=== PATIENT | male | born 1990 | race Caucasian/White ===

== ENCOUNTER 2019-01-13 19:28 | Emergency (ER) | payer SELFPAY ==
--- NOTE | 2019-01-13 20:54 | EDM.PDOCBH ---
ED HPI GENERAL MEDICAL PROBLEM - General Stated Complaint: REPORT OF HIM TAKING PILLS Time Seen by Provider: 01/13/19 19:50 Source of Information: Reports: Patient History Limitations: Reports: No Limitations - History of Present Illness INITIAL COMMENTS - FREE TEXT/NARRATIVE: 28-year-old male who presents here via ambulance from his home after they were called apparently because he called the [place] crisis line and told them that he had taken an entire bottle of his blood pressure medication to try to kill himself. He also admitted that he had been drinking some alcohol tonight. He arrives to the hospital via ambulance and immediately he is stating that he not take any pills and that he does not want to kill himself. He is rather adamant about leaving at this point. I went into evaluate the patient and it was obvious that he had alcohol intoxication with a strong odor of alcohol on his breath and lateral gaze nystagmus. When I ask him why he was here, he reports he is here because of his blood pressure. When I tell him that the reports are that he took an overdose of his blood pressure pills, he simply states "I sign myself out and I'm leaving". Following this he left the emergency department. With the reports that the patient stated that he took an entire bottle of his blood pressure medications and that he was trying to kill himself, [place] [employer] was called to the emergency department. They responded and were given a description of the patient and asked to bring the patient back to the emergency department for evaluation based on the above. 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 Social & Family History - Living Situation & Occupation Social History Comment: Patient was completely uncooperative with any history and left AWOL prior to giving any of this information. ED ROS GENERAL - Review of Systems Review Of Systems: Unable To Obtain (Patient uncooperative) Constitutional: Reports: ROS unobtainable ED EXAM, BEHAVIORAL HEALTH - Physical Exam Exam: See Below Exam Limited By: Intoxication (Patient was not cooperative with exam) General Appearance: Alert, Other (Strong odor of alcohol noted on his breath. Patient was agitated.) Eye Exam: Bilateral Eye: Other (Patient with lateral gaze nystagmus at less than 45) Ears: Normal External Exam, Hearing Grossly Normal Throat/Mouth: Normal Voice, No Airway Compromise, Other (Strong odor of alcohol) Head: Atraumatic, Normocephalic Respiratory/Chest: No Respiratory Distress Extremities: Normal Inspection Neurological: Alert, Normal Gait, No Motor/Sensory Deficits, Other (Intoxicated) Psychiatric: Alert, Uncooperative Skin Exam: Normal color COURSE, BEHAVIORAL HEALTH COMP - Course Re-Assessment/Re-Exam: 8:30 PM: The police came back and reported that they were unable to find the patient. Departure - Departure Time of Disposition: 20:30 Disposition: Eloped 07 Condition: Undetermined Clinical Impression: History of suicidal ideation, History of drug overdose Alcohol intoxication Qualifiers: Complication of substance-induced condition: uncomplicated Qualified Code(s): F10.920 - Alcohol use, unspecified with intoxication, uncomplicated - Discharge Information
== END 2019-01-13 19:55 | disposition left against medical advice (07) ==
LOC: FB.ED 19:28
DX: F10.120 Alcohol abuse with intoxication, uncomplicated (principal)
CPT/HCPCS: 99284

== ENCOUNTER 2020-07-08 02:05 | Emergency (ER) | payer SELFPAY ==
[2020-07-08] MEDS ORDERED: Sodium Chloride 0.9% 1,000 ML IV SCH (02:45)
--- NOTE | 2020-07-08 03:03 | EDM.PDOCBH ---
ED HPI GENERAL MEDICAL PROBLEM - General Chief Complaint: Drug or Alcohol Abuse Stated Complaint: wants drug screen Time Seen by Provider: 07/08/20 02:10 Source of Information: Reports: Patient History Limitations: Reports: No Limitations - History of Present Illness INITIAL COMMENTS - FREE TEXT/NARRATIVE: states he was drinking and decided to take adderal at the same time ( not prescribed to him) then told a lady friend that he had taken multiple drugs and the police was called and he wsa brought here states he took to make him "high" requesting for drug screen then after interview , requested for IVF Onset: Today Onset Date: 07/08/20 Duration: Waxing/Waning Improves with: Reports: None Worsens with: Reports: None Associated Symptoms: Reports: No Other Symptoms Past Medical History - History Comment History Comment: Patient was completely uncooperative with this and left AWOL prior to giving any of this information. ED ROS GENERAL - Review of Systems Review Of Systems: Comprehensive ROS is negative, except as noted in HPI. ED EXAM, BEHAVIORAL HEALTH - Physical Exam Exam: See Below Exam Limited By: No Limitations General Appearance: Alert, WD/WN, No Apparent Distress Ears: Normal External Exam Nose: Normal Inspection Throat/Mouth: Normal Inspection Head: Atraumatic, Normocephalic Neck: Supple, Non-Tender Respiratory/Chest: No Respiratory Distress, Lungs Clear Cardiovascular: Regular Rate, Rhythm COURSE, BEHAVIORAL HEALTH COMP - Course Orders, Labs, Meds: Active Orders 24 hr Category Date Time Status ACETAMINOPHEN [CHEM] Stat Lab 07/08/20 02:38 Ordered DRUG SCREEN, URINE ALERE [URCHEM] Stat Lab 07/08/20 02:39 Ordered ETOH [ETHANOL BLOOD MEDICAL] [CHEM] Stat Lab 07/08/20 02:38 Ordered SALICYLATE [CHEM] Stat Lab 07/08/20 02:38 Ordered Sodium Chloride 0.9% [Normal Saline] 1,000 ml Med 07/08/20 02:45 Ordered IV ASDIRECTED Re-Assessment/Re-Exam: pt had IVF and labs done , requested and [facility] Departure - Departure Time of Disposition: 04:15 Disposition: Home, Self-Care 01 Condition: Fair Clinical Impression: Drug abuse Alcohol intoxication Qualifiers: Complication of substance-induced condition: uncomplicated Qualified Code(s): F10.920 - Alcohol use, unspecified with intoxication, uncomplicated - Discharge Information *PRESCRIPTION DRUG MONITORING PROGRAM REVIEWED*: Not Applicable *COPY OF PRESCRIPTION DRUG MONITORING REPORT IN PATIENT SEB: Not Applicable Forms: ED Department Discharge Additional Instructions: 1) make appointment to see psychologist 2) Avoid use of alcohol 2) Call with any concerns - My Orders Last 24 Hours: My Active Orders 07/08/20 02:38 ACETAMINOPHEN [CHEM] Stat ETOH [ETHANOL BLOOD MEDICAL] [CHEM] Stat SALICYLATE [CHEM] Stat 07/08/20 02:39 DRUG SCREEN, URINE ALERE [URCHEM] Stat 07/08/20 02:45 Sodium Chloride 0.9% [Normal Saline] 1,000 ml IV ASDIRECTED - Assessment/Plan Last 24 Hours: My Active Orders 07/08/20 02:38 ACETAMINOPHEN [CHEM] Stat ETOH [ETHANOL BLOOD MEDICAL] [CHEM] Stat SALICYLATE [CHEM] Stat 07/08/20 02:39 DRUG SCREEN, URINE ALERE [URCHEM] Stat 07/08/20 02:45 Sodium Chloride 0.9% [Normal Saline] 1,000 ml IV ASDIRECTED
[2020-07-08 03:24] LABS: ACETAMINOPHEN < 2 ug/mL (<2)
[2020-07-08] MEDS ORDERED: Ketorolac 30 MG/ML SDV IVPUSH ONE (04:16)
== END 2020-07-08 04:45 | disposition home or self-care (01) ==
LOC: FB.ED 02:05
DX: F10.120 Alcohol abuse with intoxication, uncomplicated (principal); F15.10 Other stimulant abuse, uncomplicated
CPT/HCPCS: 36415; 80305; 80307; 96374; 99282; 99283; J1885; J7030

== ENCOUNTER 2020-07-13 21:37 | Emergency (ER) | payer SELFPAY ==
--- NOTE | 2020-07-13 23:32 | EDM.PDOCBH ---
ED HPI GENERAL MEDICAL PROBLEM - General Chief Complaint: Behavioral/Psych Stated Complaint: Drug and Alcohol Use Time Seen by Provider: 07/13/20 21:46 Source of Information: Reports: Patient, Old Records History Limitations: Reports: No Limitations - History of Present Illness INITIAL COMMENTS - FREE TEXT/NARRATIVE: Arturo comes to [facility] ED to be checked out following consumption of alcohol and heroin earlier this evening. He is an [place] [employer] Vet of the [employer] 10 years. 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 In addition, his personal life has unravel led with a separation of his spouse, no dependent children. He seemed to calm down after nearly 1/2 hour of discussion. He is alert, orientated and cooperative. R shoulder Pain Score (Numeric/FACES): 6 - Related Data Allergies Allergy/AdvReac Type Severity Reaction Status Date / Time No Known Allergies Allergy Verified 07/13/20 21:42 Home Meds: Home Meds .Amlodipine 1 tab PO DAILY 07/08/20 [History] .Aripiprazole 1 dose INJECT Q30D 07/08/20 [History] .Lisinopril 1 tab PO DAILY 07/08/20 [History] .Multivitamin 1 tab PO DAILY 07/08/20 [History] .Prozac 40 mg PO DAILY 07/08/20 [History] .Vitamin D 2 tab PO DAILY 07/08/20 [History] .Vivitrol 1 dose INJECT Q30D 07/08/20 [History] Past Medical History Cardiovascular History: Reports: Hypertension Musculoskeletal History: Reports: Other (See Below) Other Musculoskeletal History: Chronic right shoulder pain, s/p duty. Psychiatric History: Reports: Other (See Below) Other Psychiatric History: Alcohol and adrug misuse. Behavior situations. - Past Surgical History HEENT Surgical History: Reports: LASIK - History Comment History Comment: Patient was completely uncooperative with this and left AWOL prior to giving any of this information. ED ROS GENERAL - Review of Systems Review Of Systems: Comprehensive ROS is negative, except as noted in HPI. ED EXAM, BEHAVIORAL HEALTH - Physical Exam Exam: See Below Exam Limited By: No Limitations General Appearance: Alert, WD/WN, No Apparent Distress, Anxious, Obese Eye Exam: Bilateral Eye: EOMI, Normal Inspection, PERRL Ears: Normal External Exam Nose: Normal Inspection Throat/Mouth: Normal Inspection, Normal Oropharynx Head: Normocephalic Neck: Normal Inspection, Supple Respiratory/Chest: Lungs Clear Cardiovascular: Regular Rate, Rhythm, No Murmur GI/Abdominal: Soft, Non-Tender, No Organomegaly, No Mass (Male) Exam: Deferred Rectal (Males) Exam: Deferred Back Exam: Normal Inspection Extremities: Normal Inspection Neurological: Alert, CN II-XII Intact, Normal Cognition, No Motor/Sensory Deficits, Oriented x 3 Psychiatric: Alert, Oriented, Restless, Agitated Skin Exam: Warm, Dry, Intact, Normal color, No rash COURSE, BEHAVIORAL HEALTH COMP - Course Vital Signs: Last Vital Signs Temp 36.6 C 07/13/20 21:45 Pulse 123 H 07/13/20 22:22 Resp 20 07/13/20 22:22 BP 155/101 H 07/13/20 22:22 Pulse Ox 95 07/13/20 22:22 Departure - Departure Time of Disposition: 22:45 Disposition: Home, Self-Care 01 Condition: Fair, Poor Clinical Impression: Alcohol abuse, Drug abuse, History of drug overdose, Post traumatic stress disorder (PTSD) - Discharge Information *PRESCRIPTION DRUG MONITORING PROGRAM REVIEWED*: Not Applicable *COPY OF PRESCRIPTION DRUG MONITORING REPORT IN PATIENT SEB: Not Applicable Instructions: Substance Use Disorder Referrals: PCP,None [Primary Care Provider] - Forms: ED Department Discharge Additional Instructions: Activity as tolerated. Stop using drugs. Follow up with your regular MD as needed. Sepsis Event Note (ED) - Evaluation Sepsis Screening Result: No Definite Risk - Focused Exam Vital Signs: Vital Signs Temp Pulse Resp BP Pulse Ox 07/13/20 22:22 123 H 20 155/101 H 95 07/13/20 21:45 36.6 C 125 H 18 175/117 H 100 - Problem List & Annotations (1) Drug abuse SNOMED Code(s): 86728150 Code(s): F19.10 - OTHER PSYCHOACTIVE SUBSTANCE ABUSE, UNCOMPLICATED Status: Acute Current Visit: Yes Annotation/Comment:: [facility]. (2) Alcohol abuse SNOMED Code(s): 22771188 Code(s): F10.10 - ALCOHOL ABUSE, UNCOMPLICATED Status: Acute Current Visit: Yes Annotation/Comment:: Encouraged to resume [facility]. (3) Post traumatic stress disorder (PTSD) SNOMED Code(s): 97396530 Code(s): F43.10 - POST-TRAUMATIC STRESS DISORDER, UNSPECIFIED Status: Acute Current Visit: Yes Annotation/Comment:: [facility]ouraged to [facility]. - Problem List Review Problem List Initiated/Reviewed/Updated: Yes - Assessment/Plan Plan: [facility].
== END 2020-07-13 22:31 | disposition home or self-care (01) ==
LOC: FB.ED 21:37
DX: F43.10 Post-traumatic stress disorder, unspecified (principal); F10.10 Alcohol abuse, uncomplicated; F19.10 Other psychoactive substance abuse, uncomplicated; M25.511 Pain in right shoulder; I10 Essential (primary) hypertension; Z79.899 Other long term (current) drug therapy
CPT/HCPCS: 99282; 99283

== ENCOUNTER 2020-09-08 23:59 | Emergency (ER) | payer SELFPAY ==
[2020-09-09] MEDS ORDERED: Activated Charcoal/Water Susp 50 GM/240 ML Tube PO ONE ×2 (00:06→00:29)
[2020-09-09] MEDS ORDERED: LORazepam 2 MG/ML SDV IVPUSH ONE (00:10)
--- NOTE | 2020-09-09 00:14 | EDM.PDOC ---
ED HPI GENERAL MEDICAL PROBLEM - General Chief Complaint: General Stated Complaint: pills Time Seen by Provider: 09/09/20 00:00 Source of Information: Reports: Patient, EMS, Old Records History Limitations: Reports: No Limitations - History of Present Illness INITIAL COMMENTS - FREE TEXT/NARRATIVE: 30 yo male who was apparently intoxicated took #10 lisinopril and #10 amlodipine tablets of unknown strength. He wanted to harm himself, but immediately changed his mind and called EMS. Time from ingestion to arrival estimated at about 45 minutes. BP per EMS was 130 systolic, but he was tachycardic. 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 (see below) (none) - Related Data Allergies Allergy/AdvReac Type Severity Reaction Status Date / Time No Known Allergies Allergy Verified 07/13/20 21:42 Home Meds: Home Meds .Amlodipine 1 tab PO DAILY 07/08/20 [History] .Aripiprazole 1 dose INJECT Q30D 07/08/20 [History] .Lisinopril 1 tab PO DAILY 07/08/20 [History] .Multivitamin 1 tab PO DAILY 07/08/20 [History] .Prozac 40 mg PO DAILY 07/08/20 [History] .Vitamin D 2 tab PO DAILY 07/08/20 [History] .Vivitrol 1 dose INJECT Q30D 07/08/20 [History] Past Medical History Cardiovascular History: Reports: Hypertension Musculoskeletal History: Reports: Other (See Below) Other Musculoskeletal History: Chronic right shoulder pain, s/p duty. Psychiatric History: Reports: Other (See Below) Other Psychiatric History: Alcohol and adrug misuse. Behavior situations. Endocrine/Metabolic History: Reports: Obesity/BMI 30+ - Past Surgical History HEENT Surgical History: Reports: LASIK - History Comment History Comment: Patient was completely uncooperative with this and left AWOL prior to giving any of this information. Social & Family History - Family History Family Medical History: Unobtainable ED ROS GENERAL - Review of Systems Review Of Systems: See Below Constitutional: Reports: No Symptoms HEENT: Reports: No Symptoms Respiratory: Reports: No Symptoms Cardiovascular: Reports: No Symptoms Endocrine: Reports: No Symptoms GI/Abdominal: Reports: No Symptoms : Reports: No Symptoms Musculoskeletal: Reports: No Symptoms Skin: Reports: No Symptoms Neurological: Reports: No Symptoms Psychiatric: Reports: Anxiety (acute on chronic) ED EXAM, GENERAL - Physical Exam Exam: See Below Exam Limited By: No Limitations General Appearance: Alert, WD/WN, No Apparent Distress, Anxious Eye Exam: Bilateral Eye: Conjunctival Injection, Normal Inspection Ears: Normal External Exam, Normal Canal, Hearing Grossly Normal Ear Exam: Bilateral Ear: Auricle Normal, Canal Normal Nose: Normal Inspection, No Blood Throat/Mouth: Normal Inspection, Normal Lips, Normal Oropharynx, Normal Voice, No Airway Compromise Head: Atraumatic, Normocephalic Neck: Normal Inspection Respiratory/Chest: No Respiratory Distress, Lungs Clear, Normal Breath Sounds, No Accessory Muscle Use Cardiovascular: Regular Rate, Rhythm, No Edema, Tachycardia GI/Abdominal: Normal Bowel Sounds, Soft, Non-Tender, No Distention Back Exam: Normal Inspection, CVA Tenderness (R), CVA Tenderness (L) Extremities: Normal Inspection, Normal Range of Motion, Non-Tender, No Pedal Edema Neurological: Alert, Oriented, CN II-XII Intact, Normal Cognition, No Motor/Sensory Deficits Psychiatric: Anxious Skin Exam: Warm, Dry, Intact, Normal Color, No Rash Course - Vital Signs Last Recorded V/S: Last Vital Signs Temp 37.1 C 09/08/20 23:59 Pulse 108 H 09/09/20 05:35 Resp 21 H 09/08/20 23:59 BP 113/64 09/09/20 05:35 Pulse Ox 94 L 09/08/20 23:59 - Orders/Labs/Meds Orders: Active Orders 24 hr Category Date Time Status Cardiac Monitoring [RC] .As Directed Care 09/09/20 00:46 Active Magnesium Sulfate/Water [Magnesium Sulfate in Water Med 09/09/20 01:00 Active Premix] 2 gm in 50 ml IV ONETIME NS + KCl 20mEq/L [Normal Saline with 20 mEq KCl] 1,000 Med 09/09/20 00:45 Active ml IV ASDIRECTED NS + KCl 20mEq/L [Normal Saline with 20 mEq KCl] 1,000 Med 09/09/20 00:45 Active ml IV ASDIRECTED NS + KCl 20mEq/L [Normal Saline with 20 mEq KCl] 1,000 Med 09/09/20 02:00 Active ml IV ASDIRECTED Medication Orders Potassium Chloride/Sodium Chloride (Normal Saline With 20 Meq Kcl) 1,000 mls @ 500 mls/hr IV ASDIRECTED ROSAURA Last Admin: 09/09/20 00:50 Dose: 500 mls/hr Documented by: NANCY Potassium Chloride/Sodium Chloride (Normal Saline With 20 Meq Kcl) 1,000 mls @ 500 mls/hr IV ASDIRECTED ROSAURA Last Admin: 09/09/20 00:55 Dose: 500 mls/hr Documented by: NANCY Magnesium Sulfate (Magnesium Sulfate In Water Premix) 2 gm in 50 mls @ 25 mls/hr IV ONETIME ROSAURA Last Admin: 09/09/20 01:14 Dose: 25 mls/hr Documented by: NANCY Potassium Chloride/Sodium Chloride (Normal Saline With 20 Meq Kcl) 1,000 mls @ 500 mls/hr IV ASDIRECTED ROSAURA Last Admin: 09/09/20 02:25 Dose: 500 mls/hr Documented by: NANCY Labs: Laboratory Tests 09/09/20 09/09/20 09/09/20 Range/Units 00:18 00:18 00:18 WBC 6.7 (3.2-10.1) x10-3/uL RBC 5.42 (3.90-5.90) x10(6)uL Hgb 17.5 (12.9-17.7) g/dL Hct 52.1 H (38.3-50.1) % MCV 96.2 (80.8-98.7) fL MCH 32.2 (27.0-33.3) pg MCHC 33.5 (28.7-35.3) g/dL RDW 14.2 (12.4-15.0) % Plt Count 206 (117-477) x10(3)uL Sodium 140 (135-145) mmol/L Potassium 2.6 L* (3.5-5.3) mmol/L Chloride 98 L (100-110) mmol/L Carbon Dioxide 25 (21-32) mmol/L BUN 6 L (7-18) mg/dL Creatinine 1.5 H (0.70-1.30) mg/dL Est Cr Clr Drug Dosing TNP Estimated GFR (MDRD) 55 L (>60) BUN/Creatinine Ratio 4.0 L (9-20) Glucose 135 H (80-116) mg/dL Calcium 8.7 (8.6-10.2) mg/dL Magnesium (1.8-2.5) mg/dL Salicylates (<2.8) mg/dL Urine Opiates Screen (NEGATIVE) Ur Oxycodone Screen (NEGATIVE) Ur Propoxyphene Screen (NEGATIVE) Acetaminophen (<2) ug/mL Ur Barbituates Screen (NEGATIVE) Ur Tricyclics Screen (NEGATIVE) Ur Phencyclidine Scrn (NEGATIVE) Ur Amphetamine Screen (NEGATIVE) Urine MDMA Screen (NEGATIVE) U Benzodiazepines Scrn (NEGATIVE) U Cocaine Metab Screen (NEGATIVE) U Marijuana (THC) Screen (NEGATIVE) Ethyl Alcohol 0.14 H (<0.03) % 09/09/20 09/09/20 09/09/20 Range/Units 00:18 00:18 01:29 WBC (3.2-10.1) x10-3/uL RBC (3.90-5.90) x10(6)uL Hgb (12.9-17.7) g/dL Hct (38.3-50.1) % MCV (80.8-98.7) fL MCH (27.0-33.3) pg MCHC (28.7-35.3) g/dL RDW (12.4-15.0) % Plt Count (117-477) x10(3)uL Sodium (135-145) mmol/L Potassium (3.5-5.3) mmol/L Chloride (100-110) mmol/L Carbon Dioxide (21-32) mmol/L BUN (7-18) mg/dL Creatinine (0.70-1.30) mg/dL Est Cr Clr Drug Dosing Estimated GFR (MDRD) (>60) BUN/Creatinine Ratio (9-20) Glucose (80-116) mg/dL Calcium (8.6-10.2) mg/dL Magnesium 1.6 L (1.8-2.5) mg/dL Salicylates < 2.8 L (<2.8) mg/dL Urine Opiates Screen Negative (NEGATIVE) Ur Oxycodone Screen Negative (NEGATIVE) Ur Propoxyphene Screen Negative (NEGATIVE) Acetaminophen < 2 L (<2) ug/mL Ur Barbituates Screen Negative (NEGATIVE) Ur Tricyclics Screen Negative (NEGATIVE) Ur Phencyclidine Scrn Negative (NEGATIVE) Ur Amphetamine Screen Positive H (NEGATIVE) Urine MDMA Screen Negative (NEGATIVE) U Benzodiazepines Scrn Negative (NEGATIVE) U Cocaine Metab Screen Negative (NEGATIVE) U Marijuana (THC) Screen Negative (NEGATIVE) Ethyl Alcohol (<0.03) % Meds: Medications Generic Name Dose Route Start Last Admin Trade Name Freq PRN Reason Stop Dose Admin Potassium Chloride/Sodium Chloride 1,000 mls @ 500 mls/hr 09/09/20 00:45 09/09/20 00:50 Normal Saline With 20 Meq Kcl IV 500 mls/hr ASDIRECTED ROSAURA Administration Potassium Chloride/Sodium Chloride 1,000 mls @ 500 mls/hr 09/09/20 00:45 09/09/20 00:55 Normal Saline With 20 Meq Kcl IV 500 mls/hr ASDIRECTED ROSAURA Administration Magnesium Sulfate 2 gm in 50 mls @ 25 mls/hr 09/09/20 01:00 09/09/20 01:14 Magnesium Sulfate In Water Premix IV 25 mls/hr ONETIME ROSAURA Administration Potassium Chloride/Sodium Chloride 1,000 mls @ 500 mls/hr 09/09/20 02:00 09/09/20 02:25 Normal Saline With 20 Meq Kcl IV 500 mls/hr ASDIRECTED ROSAURA Administration Discontinued Medications Generic Name Dose Route Start Last Admin Trade Name Freq PRN Reason Stop Dose Admin Charcoal 50 gm 09/09/20 00:06 09/09/20 00:05 Actidose-Aqua PO 09/09/20 00:07 50 gm ONETIME ONE Administration Charcoal 50 gm 09/09/20 00:29 09/09/20 00:35 Actidose-Aqua PO 09/09/20 00:30 50 gm ONETIME ONE Administration Sodium Chloride 1,000 mls @ 500 mls/hr 09/09/20 00:15 09/09/20 00:25 Normal Saline IV 500 mls/hr ASDIRECTED ROSAURA Administration Potassium Chloride/Sodium Chloride Confirm 09/09/20 00:47 09/09/20 01:33 Normal Saline With 20 Meq Kcl Administered 09/09/20 00:48 Not Given Dose 1,000 mls @ as directed .ROUTE .STK-MED ONE Lorazepam 1 mg 09/09/20 00:10 09/09/20 00:55 Ativan IVPUSH 09/09/20 00:11 1 mg ONETIME ONE Administration - Re-Assessments/Exams Free Text/Narrative Re-Assessment/Exam: 09/09/20 06:59 Slept well. BP maintaining in the 120-130 range. Has not expressed any desire for further self-harm. Seems to indicate it was an impulsive decision to take the pills that he immediately regretted. Has a pHx of impulsivity as well. Departure - Departure Time of Disposition: 07:20 Disposition: Home, Self-Care 01 Clinical Impression: Hypokalemia, Hypomagnesemia, Anxiety Medication overdose Qualifiers: Encounter type: initial encounter Injury intent: intentional self-harm Qualified Code(s): T50.902A - Poisoning by unspecified drugs, medicaments and biological substances, intentional self-harm, initial encounter Hypotension Qualifiers: Hypotension type: hypotension due to drug Qualified Code(s): I95.2 - Hypotension due to drugs Alcohol intoxication Qualifiers: Complication of substance-induced condition: uncomplicated Qualified Code(s): F10.920 - Alcohol use, unspecified with intoxication, uncomplicated - Discharge Information *PRESCRIPTION DRUG MONITORING PROGRAM REVIEWED*: Not Applicable *COPY OF PRESCRIPTION DRUG MONITORING REPORT IN PATIENT SEB: Not Applicable Instructions: Intentional Drug Overdose Referrals: PCP,None [Primary Care Provider] - Forms: ED Department Discharge Additional Instructions: Abstaining from alcohol will improve your decision making and make it less likely that what happened last night will reoccur. I recommend that you see your primary care provider later this week for a BP recheck and a recheck of your electrolytes. Return as needed in the interim. Sepsis Event Note (ED) - Focused Exam Vital Signs: Vital Signs Temp Pulse Resp BP Pulse Ox 09/09/20 05:35 108 H 113/64 09/08/20 23:59 37.1 C 161 H 21 H 103/53 L 94 L - My Orders Last 24 Hours: My Active Orders 09/09/20 00:45 NS + KCl 20mEq/L [Normal Saline with 20 mEq KCl] 1,000 ml IV ASDIRECTED NS + KCl 20mEq/L [Normal Saline with 20 mEq KCl] 1,000 ml IV ASDIRECTED 09/09/20 00:46 Cardiac Monitoring [RC] .As Directed 09/09/20 01:00 Magnesium Sulfate/Water [Magnesium Sulfate in Water Premix] 2 gm in 50 ml IV ONETIME 09/09/20 02:00 NS + KCl 20mEq/L [Normal Saline with 20 mEq KCl] 1,000 ml IV ASDIRECTED - Assessment/Plan Last 24 Hours: My Active Orders 09/09/20 00:45 NS + KCl 20mEq/L [Normal Saline with 20 mEq KCl] 1,000 ml IV ASDIRECTED NS + KCl 20mEq/L [Normal Saline with 20 mEq KCl] 1,000 ml IV ASDIRECTED 09/09/20 00:46 Cardiac Monitoring [RC] .As Directed 09/09/20 01:00 Magnesium Sulfate/Water [Magnesium Sulfate in Water Premix] 2 gm in 50 ml IV ONETIME 09/09/20 02:00 NS + KCl 20mEq/L [Normal Saline with 20 mEq KCl] 1,000 ml IV ASDIRECTED
[2020-09-09] MEDS ORDERED: Sodium Chloride 0.9% 1,000 ML IV SCH (00:15)
[2020-09-09 00:42] LABS: ACETAMINOPHEN < 2 ug/mL (<2)
[2020-09-09] MEDS ORDERED: NS + KCl 20mEq/L 1,000 ML IV SCH ×3 (00:45→02:00)
[2020-09-09] MEDS ORDERED: NS + KCl 20mEq/L 1,000 ML ONE (00:47)
[2020-09-09] MEDS ORDERED: Magnesium Sulfate/Water 2 GM/50 ML BAG IV SCH (01:00)
== END 2020-09-09 07:25 | disposition home or self-care (01) ==
LOC: FB.ED 23:59
DX: T46.4X2A Poisoning by angiotensin-converting-enzyme inhibitors, intentional self-harm, initial encounter (principal); T46.1X2A Poisoning by calcium-channel blockers, intentional self-harm, initial encounter; I95.2 Hypotension due to drugs; F10.120 Alcohol abuse with intoxication, uncomplicated; E87.6 Hypokalemia; E83.42 Hypomagnesemia; F41.9 Anxiety disorder, unspecified; I10 Essential (primary) hypertension; E66.9 Obesity, unspecified; Z68.30 Body mass index [BMI] 30.0-30.9, adult; Y90.0 Blood alcohol level of less than 20 mg/100 ml; Z79.899 Other long term (current) drug therapy
CPT/HCPCS: 36415; 80048; 80143; 80179; 80305; 80307; 83735; 85027; 96365; 96366; 96368; 96375; 96376; 99284; 99285; J2060; J3475; J3480; J7030

== ENCOUNTER 2020-11-11 05:25 | Emergency (ER) | payer SELFPAY ==
[2020-11-11] MEDS ORDERED: Sodium Chloride 0.9% 10 ML Syringe FLUSH PRN (05:39)
--- NOTE | 2020-11-11 05:47 | EDM.PDOCBH ---
ED HPI GENERAL MEDICAL PROBLEM - General Stated Complaint: OVERDOSE Time Seen by Provider: 11/11/20 05:42 Source of Information: Reports: Patient, EMS Notes Reviewed History Limitations: Reports: Altered Mental Status - History of Present Illness INITIAL COMMENTS - FREE TEXT/NARRATIVE: Sylvie was brought in by EMS after taking 15 tablets of Seroquel 200 mg tablets. He is confused,has garbled and slurred speech,and admits to also having been taking alcohol. He has a a long standing history of mental health disorders,including,but not limited to DO,PTSD,alcohol abuse,Suicidal abuse and overdose with medications,and was recently admitted to the [facility] psychiatric unit. - Related Data Allergies Allergy/AdvReac Type Severity Reaction Status Date / Time No Known Allergies Allergy Verified 07/13/20 21:42 Home Meds: Home Meds .Amlodipine 1 tab PO DAILY 07/08/20 [History] .Aripiprazole 1 dose INJECT Q30D 07/08/20 [History] .Lisinopril 1 tab PO DAILY 07/08/20 [History] .Multivitamin 1 tab PO DAILY 07/08/20 [History] .Prozac 40 mg PO DAILY 07/08/20 [History] .Vitamin D 2 tab PO DAILY 07/08/20 [History] .Vivitrol 1 dose INJECT Q30D 07/08/20 [History] Past Medical History Cardiovascular History: Reports: Hypertension Musculoskeletal History: Reports: Other (See Below) Other Musculoskeletal History: Chronic right shoulder pain, s/p duty. Psychiatric History: Reports: Other (See Below) Other Psychiatric History: Alcohol and adrug misuse. Behavior situations. Endocrine/Metabolic History: Reports: Obesity/BMI 30+ - Past Surgical History HEENT Surgical History: Reports: LASIK - History Comment History Comment: Patient was completely uncooperative with this and left AWOL prior to giving any of this information. Social & Family History - Family History Family Medical History: Unobtainable ED ROS GENERAL - Review of Systems Review Of Systems: Comprehensive ROS is negative, except as noted in HPI. ED EXAM, BEHAVIORAL HEALTH - Physical Exam Exam: See Below Exam Limited By: Altered Mental Status General Appearance: Alert, WD/WN Ears: Normal External Exam Nose: Normal Inspection Neck: Normal Inspection Respiratory/Chest: No Respiratory Distress Cardiovascular: Tachycardia GI/Abdominal: Soft #1 Interpretation EKG Date: 11/11/20 COURSE, BEHAVIORAL HEALTH COMP - Course Vital Signs: Last Vital Signs Temp 97.6 F 11/12/20 08:00 Pulse 117 H 11/12/20 12:00 Resp 16 11/12/20 12:00 BP 148/91 H 11/12/20 12:00 Pulse Ox 99 11/12/20 12:00 Orders, Labs, Meds: Laboratory Tests 11/11/20 11/11/20 11/11/20 Range/Units 05:50 05:50 05:50 WBC 5.4 (3.2-10.1) x10-3/uL RBC 4.87 (3.90-5.90) x10(6)uL Hgb 15.5 (12.9-17.7) g/dL Hct 45.5 (38.3-50.1) % MCV 93.4 (80.8-98.7) fL MCH 31.8 (27.0-33.3) pg MCHC 34.0 (28.7-35.3) g/dL RDW 12.5 (12.4-15.0) % Plt Count 204 (117-477) x10(3)uL MPV 7.4 (6.7-11.0) fL Neut % (Auto) 52.1 (40.3-71.8) % Lymph % (Auto) 32.8 (15.8-45.3) % [place] % (Auto) 9.6 (5.5-15.2) % Eos % (Auto) 4.8 (0.1-6.8) % Baso % (Auto) 0.7 (0.3-3.8) % Neut # (Auto) 2.8 (1.7-6.9) x10-3/uL Lymph # (Auto) 1.8 (0.5-4.5) x10-3/uL [place] # (Auto) 0.5 (0.0-1.2) x10-3/uL Eos # (Auto) 0.3 (0.0-0.6) x10-3/uL Baso # (Auto) 0.0 (0.0-0.3) x10-3/uL Sodium 138 (135-145) mmol/L Potassium 2.2 L* (3.5-5.3) mmol/L Chloride 100 (100-110) mmol/L Carbon Dioxide 22 (21-32) mmol/L BUN 8 (7-18) mg/dL Creatinine 1.0 (0.70-1.30) mg/dL Est Cr Clr Drug Dosing TNP Estimated GFR (MDRD) > 60 (>60) BUN/Creatinine Ratio 8.0 L (9-20) Glucose 170 H (80-116) mg/dL Calcium 8.2 L (8.6-10.2) mg/dL Magnesium (1.8-2.5) mg/dL Total Bilirubin 0.5 (0.1-1.3) mg/dL AST 24 (5-25) IU/L ALT 79 H (12-36) U/L Alkaline Phosphatase 100 (56-112) IU/L Total Protein 6.9 (6.0-8.0) g/dL Albumin 3.3 L (3.5-5.2) g/dL Globulin 3.6 g/dL Albumin/Globulin Ratio 0.9 TSH, Ultra Sensitive (0.36-3.74) IU/mL Salicylates (<2.8) mg/dL Urine Opiates Screen (NEGATIVE) Ur Oxycodone Screen (NEGATIVE) Ur Propoxyphene Screen (NEGATIVE) Acetaminophen (<2) ug/mL Ur Barbituates Screen (NEGATIVE) Ur Tricyclics Screen (NEGATIVE) Ur Phencyclidine Scrn (NEGATIVE) Ur Amphetamine Screen (NEGATIVE) Urine MDMA Screen (NEGATIVE) U Benzodiazepines Scrn (NEGATIVE) U Cocaine Metab Screen (NEGATIVE) U Marijuana (THC) Screen (NEGATIVE) Ethyl Alcohol 0.14 H (<0.03) % SARS-CoV-2 RNA (VERNA) (NEGATIVE) 11/11/20 11/11/20 11/11/20 Range/Units 05:50 11:18 14:10 WBC (3.2-10.1) x10-3/uL RBC (3.90-5.90) x10(6)uL Hgb (12.9-17.7) g/dL Hct (38.3-50.1) % MCV (80.8-98.7) fL MCH (27.0-33.3) pg MCHC (28.7-35.3) g/dL RDW (12.4-15.0) % Plt Count (117-477) x10(3)uL MPV (6.7-11.0) fL Neut % (Auto) (40.3-71.8) % Lymph % (Auto) (15.8-45.3) % [place] % (Auto) (5.5-15.2) % Eos % (Auto) (0.1-6.8) % Baso % (Auto) (0.3-3.8) % Neut # (Auto) (1.7-6.9) x10-3/uL Lymph # (Auto) (0.5-4.5) x10-3/uL [place] # (Auto) (0.0-1.2) x10-3/uL Eos # (Auto) (0.0-0.6) x10-3/uL Baso # (Auto) (0.0-0.3) x10-3/uL Sodium 140 (135-145) mmol/L Potassium 3.1 L (3.5-5.3) mmol/L Chloride 103 (100-110) mmol/L Carbon Dioxide 26 (21-32) mmol/L BUN 8 (7-18) mg/dL Creatinine 1.0 (0.70-1.30) mg/dL Est Cr Clr Drug Dosing 110.51 Estimated GFR (MDRD) > 60 (>60) BUN/Creatinine Ratio 8.0 L (9-20) Glucose 123 H (80-116) mg/dL Calcium 7.7 L (8.6-10.2) mg/dL Magnesium 2.0 (1.8-2.5) mg/dL Total Bilirubin (0.1-1.3) mg/dL AST (5-25) IU/L ALT (12-36) U/L Alkaline Phosphatase (56-112) IU/L Total Protein (6.0-8.0) g/dL Albumin (3.5-5.2) g/dL Globulin g/dL Albumin/Globulin Ratio TSH, Ultra Sensitive (0.36-3.74) IU/mL Salicylates 0.2 L (<2.8) mg/dL Urine Opiates Screen Negative (NEGATIVE) Ur Oxycodone Screen Positive (NEGATIVE) Ur Propoxyphene Screen Negative (NEGATIVE) Acetaminophen < 2 L (<2) ug/mL Ur Barbituates Screen Negative (NEGATIVE) Ur Tricyclics Screen Positive H (NEGATIVE) Ur Phencyclidine Scrn Negative (NEGATIVE) Ur Amphetamine Screen Positive H (NEGATIVE) Urine MDMA Screen Positive H (NEGATIVE) U Benzodiazepines Scrn Negative (NEGATIVE) U Cocaine Metab Screen Negative (NEGATIVE) U Marijuana (THC) Screen Negative (NEGATIVE) Ethyl Alcohol (<0.03) % SARS-CoV-2 RNA (VERNA) (NEGATIVE) 11/11/20 11/11/20 11/11/20 Range/Units 15:00 15:00 15:00 WBC (3.2-10.1) x10-3/uL RBC (3.90-5.90) x10(6)uL Hgb (12.9-17.7) g/dL Hct (38.3-50.1) % MCV (80.8-98.7) fL MCH (27.0-33.3) pg MCHC (28.7-35.3) g/dL RDW (12.4-15.0) % Plt Count (117-477) x10(3)uL MPV (6.7-11.0) fL Neut % (Auto) (40.3-71.8) % Lymph % (Auto) (15.8-45.3) % [place] % (Auto) (5.5-15.2) % Eos % (Auto) (0.1-6.8) % Baso % (Auto) (0.3-3.8) % Neut # (Auto) (1.7-6.9) x10-3/uL Lymph # (Auto) (0.5-4.5) x10-3/uL [place] # (Auto) (0.0-1.2) x10-3/uL Eos # (Auto) (0.0-0.6) x10-3/uL Baso # (Auto) (0.0-0.3) x10-3/uL Sodium 140 (135-145) mmol/L Potassium 3.6 (3.5-5.3) mmol/L Chloride 101 (100-110) mmol/L Carbon Dioxide 26 (21-32) mmol/L BUN 6 L (7-18) mg/dL Creatinine 1.0 (0.70-1.30) mg/dL Est Cr Clr Drug Dosing 110.51 Estimated GFR (MDRD) > 60 (>60) BUN/Creatinine Ratio 6.0 L (9-20) Glucose 107 (80-116) mg/dL Calcium 8.0 L (8.6-10.2) mg/dL Magnesium (1.8-2.5) mg/dL Total Bilirubin (0.1-1.3) mg/dL AST (5-25) IU/L ALT (12-36) U/L Alkaline Phosphatase (56-112) IU/L Total Protein (6.0-8.0) g/dL Albumin (3.5-5.2) g/dL Globulin g/dL Albumin/Globulin Ratio TSH, Ultra Sensitive 1.31 (0.36-3.74) IU/mL Salicylates (<2.8) mg/dL Urine Opiates Screen (NEGATIVE) Ur Oxycodone Screen (NEGATIVE) Ur Propoxyphene Screen (NEGATIVE) Acetaminophen (<2) ug/mL Ur Barbituates Screen (NEGATIVE) Ur Tricyclics Screen (NEGATIVE) Ur Phencyclidine Scrn (NEGATIVE) Ur Amphetamine Screen (NEGATIVE) Urine MDMA Screen (NEGATIVE) U Benzodiazepines Scrn (NEGATIVE) U Cocaine Metab Screen (NEGATIVE) U Marijuana (THC) Screen (NEGATIVE) Ethyl Alcohol < 0.03 (<0.03) % SARS-CoV-2 RNA (VERNA) (NEGATIVE) 11/11/20 11/11/20 11/11/20 Range/Units 15:00 15:00 19:45 WBC (3.2-10.1) x10-3/uL RBC (3.90-5.90) x10(6)uL Hgb (12.9-17.7) g/dL Hct (38.3-50.1) % MCV (80.8-98.7) fL MCH (27.0-33.3) pg MCHC (28.7-35.3) g/dL RDW (12.4-15.0) % Plt Count (117-477) x10(3)uL MPV (6.7-11.0) fL Neut % (Auto) (40.3-71.8) % Lymph % (Auto) (15.8-45.3) % [place] % (Auto) (5.5-15.2) % Eos % (Auto) (0.1-6.8) % Baso % (Auto) (0.3-3.8) % Neut # (Auto) (1.7-6.9) x10-3/uL Lymph # (Auto) (0.5-4.5) x10-3/uL [place] # (Auto) (0.0-1.2) x10-3/uL Eos # (Auto) (0.0-0.6) x10-3/uL Baso # (Auto) (0.0-0.3) x10-3/uL Sodium (135-145) mmol/L Potassium (3.5-5.3) mmol/L Chloride (100-110) mmol/L Carbon Dioxide (21-32) mmol/L BUN (7-18) mg/dL Creatinine (0.70-1.30) mg/dL Est Cr Clr Drug Dosing Estimated GFR (MDRD) (>60) BUN/Creatinine Ratio (9-20) Glucose (80-116) mg/dL Calcium (8.6-10.2) mg/dL Magnesium (1.8-2.5) mg/dL Total Bilirubin (0.1-1.3) mg/dL AST (5-25) IU/L ALT (12-36) U/L Alkaline Phosphatase (56-112) IU/L Total Protein (6.0-8.0) g/dL Albumin (3.5-5.2) g/dL Globulin g/dL Albumin/Globulin Ratio TSH, Ultra Sensitive (0.36-3.74) IU/mL Salicylates 0.3 L (<2.8) mg/dL Urine Opiates Screen (NEGATIVE) Ur Oxycodone Screen (NEGATIVE) Ur Propoxyphene Screen (NEGATIVE) Acetaminophen < 2 L (<2) ug/mL Ur Barbituates Screen (NEGATIVE) Ur Tricyclics Screen (NEGATIVE) Ur Phencyclidine Scrn (NEGATIVE) Ur Amphetamine Screen (NEGATIVE) Urine MDMA Screen (NEGATIVE) U Benzodiazepines Scrn (NEGATIVE) U Cocaine Metab Screen (NEGATIVE) U Marijuana (THC) Screen (NEGATIVE) Ethyl Alcohol (<0.03) % SARS-CoV-2 RNA (VERNA) Negative (NEGATIVE) Medications Discontinued Medications Generic Name Dose Route Start Last Admin Trade Name Freq PRN Reason Stop Dose Admin Acetaminophen 1,000 mg 11/11/20 19:45 11/11/20 19:54 Acetaminophen 500 Mg Tab PO 11/11/20 19:46 1,000 mg ONETIME ONE Administration Sodium Chloride 1,000 mls @ 150 mls/hr 11/11/20 06:00 11/11/20 08:45 Normal Saline IV 150 mls/hr ASDIRECTED ROSAURA Infusion Potassium Chloride 10 meq/ 100 mls @ 100 mls/hr 11/11/20 06:22 11/11/20 06:29 Premix IV 11/11/20 07:21 100 mls/hr ONETIME ONE Administration Sodium Chloride 1,000 mls @ 125 mls/hr 11/11/20 10:00 11/11/20 10:05 Normal Saline IV 125 mls/hr ASDIRECTED ROSAURA Administration Potassium Chloride 10 meq/ 100 mls @ 100 mls/hr 11/11/20 12:10 11/11/20 12:17 Premix IV 11/11/20 13:09 100 mls/hr ONETIME ONE Administration Lorazepam 1 mg 11/11/20 19:45 11/11/20 19:54 Lorazepam 1 Mg Tab PO 11/11/20 19:46 1 mg ONETIME ONE Administration Lorazepam 1 mg 11/12/20 05:28 11/12/20 05:34 Lorazepam 1 Mg Tab PO 11/12/20 05:29 1 mg ONETIME ONE Administration Sodium Chloride 10 ml 11/11/20 05:39 Sodium Chloride 0.9% 10 Ml Syringe FLUSH ASDIRECTED PRN Keep Vein Open Departure - Departure Time of Disposition: 19:09 Disposition: DC/Tfer to Other 70 Clinical Impression: History of drug overdose, Hypokalemia, Deliberate medication overdose Alcohol intoxication Qualifiers: Complication of substance-induced condition: with delirium Qualified Code(s): F10.921 - Alcohol use, unspecified with intoxication delirium - Discharge Information Instructions: Chemical Dependency, Intentional Drug Overdose, Alcohol Intoxication Referrals: PCP,None [Primary Care Provider] - Forms: ED Department Discharge - Problem List & Annotations (1) Alcohol intoxication SNOMED Code(s): 99702714 Code(s): F10.929 - ALCOHOL USE, UNSPECIFIED WITH INTOXICATION, UNSPECIFIED Status: Acute Qualifiers: Complication of substance-induced condition: with delirium Qualified Code(s): F10.921 - Alcohol use, unspecified with intoxication delirium (2) Medication overdose SNOMED Code(s): 97626142 Code(s): T50.901A - POISONING BY UNSP DRUG/MEDS/BIOL SUBST, ACCIDENTAL, INIT Status: Acute Qualifiers: Encounter type: initial encounter Injury intent: intentional self-harm Qualified Code(s): T50.902A - Poisoning by unspecified drugs, medicaments and biological substances, intentional self-harm, initial encounter - Problem List Review Problem List Initiated/Reviewed/Updated: Yes - Assessment/Plan Plan: Supportive care and monitoring until clears. IVF. Obtain labs.Dr Andino to take over
[2020-11-11] MEDS ORDERED: Sodium Chloride 0.9% 1,000 ML IV SCH ×2 (06:00→10:00)
[2020-11-11 06:15] LABS: ACETAMINOPHEN < 2 ug/mL (<2)
[2020-11-11] MEDS ORDERED: Potassium Chloride 10 MEQ in Premix Bag 1 BAG IV ONE ×2 (06:22→12:10)
--- NOTE | 2020-11-11 14:57 | EDM.PDOCBH ---
ED HPI GENERAL MEDICAL PROBLEM - General Chief Complaint: Drug or Alcohol Abuse Stated Complaint: OVERDOSE Time Seen by Provider: 11/11/20 05:42 Source of Information: Reports: Patient, EMS Notes Reviewed History Limitations: Reports: Altered Mental Status - History of Present Illness INITIAL COMMENTS - FREE TEXT/NARRATIVE: Sylvie was brought in by EMS after taking 15 tablets of Seroquel 200 mg tablets. He is confused,has garbled and slurred speech,and admits to also having been taking alcohol. He has a a long standing history of mental health disorders,including,but not limited to DO,PTSD,alcohol abuse,Suicidal abuse and overdose with medications,and was recently admitted to the [place] [facility]. Onset Date: 11/11/20 Duration: Waxing/Waning Improves with: Reports: None Worsens with: Reports: None Associated Symptoms: Reports: No Other Symptoms - Related Data Allergies Allergy/AdvReac Type Severity Reaction Status Date / Time No Known Allergies Allergy Verified 07/13/20 21:42 Home Meds: Home Meds .Amlodipine 1 tab PO DAILY 07/08/20 [History] .Aripiprazole 1 dose INJECT Q30D 07/08/20 [History] .Lisinopril 1 tab PO DAILY 07/08/20 [History] .Multivitamin 1 tab PO DAILY 07/08/20 [History] .Prozac 40 mg PO DAILY 07/08/20 [History] .Vitamin D 2 tab PO DAILY 07/08/20 [History] .Vivitrol 1 dose INJECT Q30D 07/08/20 [History] Past Medical History Cardiovascular History: Reports: Hypertension Musculoskeletal History: Reports: Other (See Below) Other Musculoskeletal History: Chronic right shoulder pain, s/p duty. Psychiatric History: Reports: Other (See Below) Other Psychiatric History: Alcohol and adrug misuse. Behavior situations. Endocrine/Metabolic History: Reports: Obesity/BMI 30+ - Past Surgical History HEENT Surgical History: Reports: LASIK - History Comment History Comment: Patient was completely uncooperative with this and left AWOL prior to giving any of this information. Social & Family History - Family History Family Medical History: Unobtainable ED ROS GENERAL - Review of Systems Review Of Systems: See Below Constitutional: Reports: Weakness HEENT: Reports: No Symptoms Respiratory: Reports: No Symptoms. Denies: Shortness of Breath Cardiovascular: Reports: No Symptoms. Denies: Chest Pain, Dyspnea on Exertion, Edema, Orthopnea Endocrine: Reports: No Symptoms GI/Abdominal: Reports: No Symptoms Musculoskeletal: Reports: No Symptoms Skin: Reports: No Symptoms Neurological: Reports: Gait Disturbance. Denies: Trouble Speaking Psychiatric: Denies: Agitation, Anxiety, Suicidal Ideation Hematologic/Lymphatic: Reports: No Symptoms Immunologic: Reports: No Symptoms ED EXAM, BEHAVIORAL HEALTH - Physical Exam Exam: See Below Exam Limited By: No Limitations General Appearance: Alert, WD/WN, No Apparent Distress, Lethargic Eye Exam: Bilateral Eye: EOMI Ears: Normal External Exam Nose: Normal Inspection Throat/Mouth: Normal Inspection Head: Atraumatic, Normocephalic Neck: Supple, Non-Tender Respiratory/Chest: Lungs Clear, Normal Breath Sounds Cardiovascular: Normal Peripheral Pulses, Regular Rate, Rhythm GI/Abdominal: Soft, Non-Tender Back Exam: Normal Inspection, Full Range of Motion Extremities: Normal Inspection, Normal Range of Motion Neurological: Alert, Normal Mood/Affect, CN II-XII Intact Psychiatric: Alert, Normal Affect, Normal Cognition Skin Exam: Warm, Dry, Intact #1 Interpretation EKG Date: 11/11/20 Time: 09:12 Rhythm: NSR Rate (Beats/Min): 101 [place]: Normal P-Wave: Present QRS: Normal ST-T: Normal QT: Normal Comparison: NA - No Prior EKG EKG Interpretation Comments: Normal , Sinus tachycardia COURSE, BEHAVIORAL HEALTH COMP - Course Vital Signs: Last Vital Signs Temp 36.6 C 11/12/20 05:10 Pulse 130 H 11/12/20 05:10 Resp 16 11/12/20 05:10 BP 148/98 H 11/12/20 05:10 Pulse Ox 98 11/12/20 05:10 Orders, Labs, Meds: Active Orders 24 hr Category Date Time Status EKG Documentation Completion [RC] ASDIRECTED Care 11/11/20 09:27 Active Oxygen Therapy, ED [RC] ASDIRECTED Care 11/11/20 06:30 Active Sodium Chloride 0.9% [Normal Saline] 1,000 ml Med 11/11/20 10:00 Active IV ASDIRECTED EKG 12 Lead [EK] Routine Ther 11/11/20 09:26 Ordered Medication Orders Sodium Chloride (Normal Saline) 1,000 mls @ 150 mls/hr IV ASDIRECTED ROSARUA Last Infusion: 11/11/20 08:45 Dose: 150 mls/hr Documented by: Infusion: 11/11/20 08:15 Dose: 999 mls/hr Documented by: Admin: 11/11/20 05:50 Dose: 150 mls/hr Documented by: LARISSA Sodium Chloride (Normal Saline) 1,000 mls @ 125 mls/hr IV ASDIRECTED ROSAURA Last Admin: 11/11/20 10:05 Dose: 125 mls/hr Documented by: TIFFANI Sodium Chloride (Sodium Chloride 0.9% 10 Ml Syringe) 10 ml FLUSH ASDIRECTED PRN PRN Reason: Keep Vein Open Laboratory Tests 11/11/20 11/11/20 11/11/20 Range/Units 05:50 05:50 05:50 WBC 5.4 (3.2-10.1) x10-3/uL RBC 4.87 (3.90-5.90) x10(6)uL Hgb 15.5 (12.9-17.7) g/dL Hct 45.5 (38.3-50.1) % MCV 93.4 (80.8-98.7) fL MCH 31.8 (27.0-33.3) pg MCHC 34.0 (28.7-35.3) g/dL RDW 12.5 (12.4-15.0) % Plt Count 204 (117-477) x10(3)uL MPV 7.4 (6.7-11.0) fL Neut % (Auto) 52.1 (40.3-71.8) % Lymph % (Auto) 32.8 (15.8-45.3) % [place] % (Auto) 9.6 (5.5-15.2) % Eos % (Auto) 4.8 (0.1-6.8) % Baso % (Auto) 0.7 (0.3-3.8) % Neut # (Auto) 2.8 (1.7-6.9) x10-3/uL Lymph # (Auto) 1.8 (0.5-4.5) x10-3/uL [place] # (Auto) 0.5 (0.0-1.2) x10-3/uL Eos # (Auto) 0.3 (0.0-0.6) x10-3/uL Baso # (Auto) 0.0 (0.0-0.3) x10-3/uL Sodium 138 (135-145) mmol/L Potassium 2.2 L* (3.5-5.3) mmol/L Chloride 100 (100-110) mmol/L Carbon Dioxide 22 (21-32) mmol/L BUN 8 (7-18) mg/dL Creatinine 1.0 (0.70-1.30) mg/dL Est Cr Clr Drug Dosing TNP Estimated GFR (MDRD) > 60 (>60) BUN/Creatinine Ratio 8.0 L (9-20) Glucose 170 H (80-116) mg/dL Calcium 8.2 L (8.6-10.2) mg/dL Magnesium (1.8-2.5) mg/dL Total Bilirubin 0.5 (0.1-1.3) mg/dL AST 24 (5-25) IU/L ALT 79 H (12-36) U/L Alkaline Phosphatase 100 (56-112) IU/L Total Protein 6.9 (6.0-8.0) g/dL Albumin 3.3 L (3.5-5.2) g/dL Globulin 3.6 g/dL Albumin/Globulin Ratio 0.9 TSH, Ultra Sensitive (0.36-3.74) IU/mL Salicylates (<2.8) mg/dL Urine Opiates Screen (NEGATIVE) Ur Oxycodone Screen (NEGATIVE) Ur Propoxyphene Screen (NEGATIVE) Acetaminophen (<2) ug/mL Ur Barbituates Screen (NEGATIVE) Ur Tricyclics Screen (NEGATIVE) Ur Phencyclidine Scrn (NEGATIVE) Ur Amphetamine Screen (NEGATIVE) Urine MDMA Screen (NEGATIVE) U Benzodiazepines Scrn (NEGATIVE) U Cocaine Metab Screen (NEGATIVE) U Marijuana (THC) Screen (NEGATIVE) Ethyl Alcohol 0.14 H (<0.03) % SARS-CoV-2 RNA (VERNA) (NEGATIVE) 11/11/20 11/11/20 11/11/20 Range/Units 05:50 11:18 14:10 WBC (3.2-10.1) x10-3/uL RBC (3.90-5.90) x10(6)uL Hgb (12.9-17.7) g/dL Hct (38.3-50.1) % MCV (80.8-98.7) fL MCH (27.0-33.3) pg MCHC (28.7-35.3) g/dL RDW (12.4-15.0) % Plt Count (117-477) x10(3)uL MPV (6.7-11.0) fL Neut % (Auto) (40.3-71.8) % Lymph % (Auto) (15.8-45.3) % [place] % (Auto) (5.5-15.2) % Eos % (Auto) (0.1-6.8) % Baso % (Auto) (0.3-3.8) % Neut # (Auto) (1.7-6.9) x10-3/uL Lymph # (Auto) (0.5-4.5) x10-3/uL [place] # (Auto) (0.0-1.2) x10-3/uL Eos # (Auto) (0.0-0.6) x10-3/uL Baso # (Auto) (0.0-0.3) x10-3/uL Sodium 140 (135-145) mmol/L Potassium 3.1 L (3.5-5.3) mmol/L Chloride 103 (100-110) mmol/L Carbon Dioxide 26 (21-32) mmol/L BUN 8 (7-18) mg/dL Creatinine 1.0 (0.70-1.30) mg/dL Est Cr Clr Drug Dosing 110.51 Estimated GFR (MDRD) > 60 (>60) BUN/Creatinine Ratio 8.0 L (9-20) Glucose 123 H (80-116) mg/dL Calcium 7.7 L (8.6-10.2) mg/dL Magnesium 2.0 (1.8-2.5) mg/dL Total Bilirubin (0.1-1.3) mg/dL AST (5-25) IU/L ALT (12-36) U/L Alkaline Phosphatase (56-112) IU/L Total Protein (6.0-8.0) g/dL Albumin (3.5-5.2) g/dL Globulin g/dL Albumin/Globulin Ratio TSH, Ultra Sensitive (0.36-3.74) IU/mL Salicylates 0.2 L (<2.8) mg/dL Urine Opiates Screen Negative (NEGATIVE) Ur Oxycodone Screen Positive (NEGATIVE) Ur Propoxyphene Screen Negative (NEGATIVE) Acetaminophen < 2 L (<2) ug/mL Ur Barbituates Screen Negative (NEGATIVE) Ur Tricyclics Screen Positive H (NEGATIVE) Ur Phencyclidine Scrn Negative (NEGATIVE) Ur Amphetamine Screen Positive H (NEGATIVE) Urine MDMA Screen Positive H (NEGATIVE) U Benzodiazepines Scrn Negative (NEGATIVE) U Cocaine Metab Screen Negative (NEGATIVE) U Marijuana (THC) Screen Negative (NEGATIVE) Ethyl Alcohol (<0.03) % SARS-CoV-2 RNA (VERNA) (NEGATIVE) 11/11/20 11/11/20 11/11/20 Range/Units 15:00 15:00 15:00 WBC (3.2-10.1) x10-3/uL RBC (3.90-5.90) x10(6)uL Hgb (12.9-17.7) g/dL Hct (38.3-50.1) % MCV (80.8-98.7) fL MCH (27.0-33.3) pg MCHC (28.7-35.3) g/dL RDW (12.4-15.0) % Plt Count (117-477) x10(3)uL MPV (6.7-11.0) fL Neut % (Auto) (40.3-71.8) % Lymph % (Auto) (15.8-45.3) % [place] % (Auto) (5.5-15.2) % Eos % (Auto) (0.1-6.8) % Baso % (Auto) (0.3-3.8) % Neut # (Auto) (1.7-6.9) x10-3/uL Lymph # (Auto) (0.5-4.5) x10-3/uL [place] # (Auto) (0.0-1.2) x10-3/uL Eos # (Auto) (0.0-0.6) x10-3/uL Baso # (Auto) (0.0-0.3) x10-3/uL Sodium 140 (135-145) mmol/L Potassium 3.6 (3.5-5.3) mmol/L Chloride 101 (100-110) mmol/L Carbon Dioxide 26 (21-32) mmol/L BUN 6 L (7-18) mg/dL Creatinine 1.0 (0.70-1.30) mg/dL Est Cr Clr Drug Dosing 110.51 Estimated GFR (MDRD) > 60 (>60) BUN/Creatinine Ratio 6.0 L (9-20) Glucose 107 (80-116) mg/dL Calcium 8.0 L (8.6-10.2) mg/dL Magnesium (1.8-2.5) mg/dL Total Bilirubin (0.1-1.3) mg/dL AST (5-25) IU/L ALT (12-36) U/L Alkaline Phosphatase (56-112) IU/L Total Protein (6.0-8.0) g/dL Albumin (3.5-5.2) g/dL Globulin g/dL Albumin/Globulin Ratio TSH, Ultra Sensitive 1.31 (0.36-3.74) IU/mL Salicylates (<2.8) mg/dL Urine Opiates Screen (NEGATIVE) Ur Oxycodone Screen (NEGATIVE) Ur Propoxyphene Screen (NEGATIVE) Acetaminophen (<2) ug/mL Ur Barbituates Screen (NEGATIVE) Ur Tricyclics Screen (NEGATIVE) Ur Phencyclidine Scrn (NEGATIVE) Ur Amphetamine Screen (NEGATIVE) Urine MDMA Screen (NEGATIVE) U Benzodiazepines Scrn (NEGATIVE) U Cocaine Metab Screen (NEGATIVE) U Marijuana (THC) Screen (NEGATIVE) Ethyl Alcohol < 0.03 (<0.03) % SARS-CoV-2 RNA (VERNA) (NEGATIVE) 11/11/20 11/11/20 11/11/20 Range/Units 15:00 15:00 19:45 WBC (3.2-10.1) x10-3/uL RBC (3.90-5.90) x10(6)uL Hgb (12.9-17.7) g/dL Hct (38.3-50.1) % MCV (80.8-98.7) fL MCH (27.0-33.3) pg MCHC (28.7-35.3) g/dL RDW (12.4-15.0) % Plt Count (117-477) x10(3)uL MPV (6.7-11.0) fL Neut % (Auto) (40.3-71.8) % Lymph % (Auto) (15.8-45.3) % [place] % (Auto) (5.5-15.2) % Eos % (Auto) (0.1-6.8) % Baso % (Auto) (0.3-3.8) % Neut # (Auto) (1.7-6.9) x10-3/uL Lymph # (Auto) (0.5-4.5) x10-3/uL [place] # (Auto) (0.0-1.2) x10-3/uL Eos # (Auto) (0.0-0.6) x10-3/uL Baso # (Auto) (0.0-0.3) x10-3/uL Sodium (135-145) mmol/L Potassium (3.5-5.3) mmol/L Chloride (100-110) mmol/L Carbon Dioxide (21-32) mmol/L BUN (7-18) mg/dL Creatinine (0.70-1.30) mg/dL Est Cr Clr Drug Dosing Estimated GFR (MDRD) (>60) BUN/Creatinine Ratio (9-20) Glucose (80-116) mg/dL Calcium (8.6-10.2) mg/dL Magnesium (1.8-2.5) mg/dL Total Bilirubin (0.1-1.3) mg/dL AST (5-25) IU/L ALT (12-36) U/L Alkaline Phosphatase (56-112) IU/L Total Protein (6.0-8.0) g/dL Albumin (3.5-5.2) g/dL Globulin g/dL Albumin/Globulin Ratio TSH, Ultra Sensitive (0.36-3.74) IU/mL Salicylates 0.3 L (<2.8) mg/dL Urine Opiates Screen (NEGATIVE) Ur Oxycodone Screen (NEGATIVE) Ur Propoxyphene Screen (NEGATIVE) Acetaminophen < 2 L (<2) ug/mL Ur Barbituates Screen (NEGATIVE) Ur Tricyclics Screen (NEGATIVE) Ur Phencyclidine Scrn (NEGATIVE) Ur Amphetamine Screen (NEGATIVE) Urine MDMA Screen (NEGATIVE) U Benzodiazepines Scrn (NEGATIVE) U Cocaine Metab Screen (NEGATIVE) U Marijuana (THC) Screen (NEGATIVE) Ethyl Alcohol (<0.03) % SARS-CoV-2 RNA (VERNA) Negative (NEGATIVE) Medications Generic Name Dose Route Start Last Admin Trade Name Freq PRN Reason Stop Dose Admin Sodium Chloride 1,000 mls @ 150 mls/hr 11/11/20 06:00 11/11/20 08:45 Normal Saline IV 150 mls/hr ASDIRECTED ROSAURA Infusion Sodium Chloride 1,000 mls @ 125 mls/hr 11/11/20 10:00 11/11/20 10:05 Normal Saline IV 125 mls/hr ASDIRECTED ROSAURA Administration Sodium Chloride 10 ml 11/11/20 05:39 Sodium Chloride 0.9% 10 Ml Syringe FLUSH ASDIRECTED PRN Keep Vein Open Discontinued Medications Generic Name Dose Route Start Last Admin Trade Name Freq PRN Reason Stop Dose Admin Acetaminophen 1,000 mg 11/11/20 19:45 11/11/20 19:54 Acetaminophen 500 Mg Tab PO 11/11/20 19:46 1,000 mg ONETIME ONE Administration Potassium Chloride 10 meq/ 100 mls @ 100 mls/hr 11/11/20 06:22 11/11/20 06:29 Premix IV 11/11/20 07:21 100 mls/hr ONETIME ONE Administration Potassium Chloride 10 meq/ 100 mls @ 100 mls/hr 11/11/20 12:10 11/11/20 12:17 Premix IV 11/11/20 13:09 100 mls/hr ONETIME ONE Administration Lorazepam 1 mg 11/11/20 19:45 11/11/20 19:54 Lorazepam 1 Mg Tab PO 11/11/20 19:46 1 mg ONETIME ONE Administration Lorazepam 1 mg 11/12/20 05:28 11/12/20 05:34 Lorazepam 1 Mg Tab PO 11/12/20 05:29 1 mg ONETIME ONE Administration Re-Assessment/Re-Exam: 1540pm pt is now more alert Still denies beign suicidal but did take the overdose purposely states he had planeed to go to [facility] for rehab : alcohol and drug use Requesting to be sent there now Will get Psychological evaluation from [facility] call made to [facility] and he may have a place in the am pt is placed on observation in the Er till able to get admission Re-Assessment/Re-Exam Date: 11/12/20 Medical Clearance: 11/12/20 06:58 pt has been medically cleared for admission to rehab 11/12/20 07:08 signed off to next provider Departure - Departure Time of Disposition: 07:00 Disposition: DC/Tfer to Other 70 Clinical Impression: History of drug overdose, Hypokalemia, Deliberate medication overdose Alcohol intoxication Qualifiers: Complication of substance-induced condition: with delirium Qualified Code(s): F10.921 - Alcohol use, unspecified with intoxication delirium - Discharge Information *PRESCRIPTION DRUG MONITORING PROGRAM REVIEWED*: Not Applicable *COPY OF PRESCRIPTION DRUG MONITORING REPORT IN PATIENT SEB: Not Applicable Instructions: Chemical Dependency, Intentional Drug Overdose, Alcohol Intoxica tion Referrals: PCP,None [Primary Care Provider] - Sepsis Event Note (ED) - Evaluation Sepsis Screening Result: No Definite Risk - Focused Exam Vital Signs: Vital Signs Temp Temp Pulse Pulse Resp BP Pulse Ox 11/12/20 05:10 36.6 C 130 H 16 148/98 H 98 11/12/20 01:45 36.9 C 138 H 16 138/95 H 98 11/11/20 19:40 37.8 C 135 H 17 121/73 98 - My Orders Last 24 Hours: My Active Orders 11/11/20 09:26 EKG 12 Lead [EK] Routine 11/11/20 09:27 EKG Documentation Completion [RC] ASDIRECTED 11/11/20 10:00 Sodium Chloride 0.9% [Normal Saline] 1,000 ml IV ASDIRECTED - Assessment/Plan Last 24 Hours: My Active Orders 11/11/20 09:26 EKG 12 Lead [EK] Routine 11/11/20 09:27 EKG Documentation Completion [RC] ASDIRECTED 11/11/20 10:00 Sodium Chloride 0.9% [Normal Saline] 1,000 ml IV ASDIRECTED
[2020-11-11] MEDS ORDERED: Acetaminophen 500 MG Tab PO ONE (19:45)
[2020-11-11] MEDS ORDERED: LORazepam 1 MG Tab PO ONE (19:45)
[2020-11-12] MEDS ORDERED: LORazepam 1 MG Tab PO ONE (05:28)
--- NOTE | 2020-11-21 19:19 | EDM.PDOC ---
ED HPI GENERAL MEDICAL PROBLEM - General Chief Complaint: Drug or Alcohol Abuse Stated Complaint: OVERDOSE Time Seen by Provider: 11/11/20 05:42 Source of Information: Reports: Patient, EMS Notes Reviewed History Limitations: Reports: Altered Mental Status - History of Present Illness INITIAL COMMENTS - FREE TEXT/NARRATIVE: Sylvie was brought in by EMS after taking 15 tablets of Seroquel 200 mg tablets. He is confused,has garbled and slurred speech,and admits to also having been taking alcohol. He has a a long standing history of mental health disorders,including,but not limited to DO,PTSD,alcohol abuse,Suicidal abuse and overdose with medications,and was recently admitted to the [facility]. Onset Date: 11/11/20 Duration: Waxing/Waning Improves with: Reports: None Worsens with: Reports: None Associated Symptoms: Reports: No Other Symptoms - Related Data Allergies Allergy/AdvReac Type Severity Reaction Status Date / Time No Known Allergies Allergy Verified 07/13/20 21:42 Home Meds: Home Meds .Amlodipine 1 tab PO DAILY 07/08/20 [History] .Aripiprazole 1 dose INJECT Q30D 07/08/20 [History] .Lisinopril 1 tab PO DAILY 07/08/20 [History] .Multivitamin 1 tab PO DAILY 07/08/20 [History] .Prozac 40 mg PO DAILY 07/08/20 [History] .Vitamin D 2 tab PO DAILY 07/08/20 [History] .Vivitrol 1 dose INJECT Q30D 07/08/20 [History] Past Medical History Cardiovascular History: Reports: Hypertension Musculoskeletal History: Reports: Other (See Below) Other Musculoskeletal History: Chronic right shoulder pain, s/p duty. Psychiatric History: Reports: Other (See Below) Other Psychiatric History: Alcohol and drug misuse. Behavioral and mood disorders. Endocrine/Metabolic History: Reports: Obesity/BMI 30+ - Past Surgical History HEENT Surgical History: Reports: LASIK - History Comment History Comment: Patient was completely uncooperative with this and left AWOL prior to giving any of this information. Social & Family History - Family History Family Medical History: Unobtainable - Recreational Drug Use Recreational Drug Type: Reports: Amphetamines (Speed), Oxycodone, Other (see below) Other Recreational Drug Type: MDMA ED ROS GENERAL - Review of Systems Review Of Systems: Comprehensive ROS is negative, except as noted in HPI. - Physical Exam Exam: See Below Exam Limited By: No Limitations #1 Interpretation EKG Date: 11/11/20 Rhythm: NSR Rate (Beats/Min): 99 [place]: Normal P-Wave: Present ST-T: Normal Comparison: NA - No Prior EKG Course - Vital Signs Last Recorded V/S: Last Vital Signs Temp 97.6 F 11/12/20 08:00 Pulse 117 H 11/12/20 12:00 Resp 16 11/12/20 12:00 BP 148/91 H 11/12/20 12:00 Pulse Ox 99 11/12/20 12:00 - Orders/Labs/Meds Labs: Laboratory Tests 11/11/20 11/11/20 11/11/20 Range/Units 05:50 05:50 05:50 WBC 5.4 (3.2-10.1) x10-3/uL RBC 4.87 (3.90-5.90) x10(6)uL Hgb 15.5 (12.9-17.7) g/dL Hct 45.5 (38.3-50.1) % MCV 93.4 (80.8-98.7) fL MCH 31.8 (27.0-33.3) pg MCHC 34.0 (28.7-35.3) g/dL RDW 12.5 (12.4-15.0) % Plt Count 204 (117-477) x10(3)uL MPV 7.4 (6.7-11.0) fL Neut % (Auto) 52.1 (40.3-71.8) % Lymph % (Auto) 32.8 (15.8-45.3) % Bell % (Auto) 9.6 (5.5-15.2) % Eos % (Auto) 4.8 (0.1-6.8) % Baso % (Auto) 0.7 (0.3-3.8) % Neut # (Auto) 2.8 (1.7-6.9) x10-3/uL Lymph # (Auto) 1.8 (0.5-4.5) x10-3/uL Bell # (Auto) 0.5 (0.0-1.2) x10-3/uL Eos # (Auto) 0.3 (0.0-0.6) x10-3/uL Baso # (Auto) 0.0 (0.0-0.3) x10-3/uL Sodium 138 (135-145) mmol/L Potassium 2.2 L* (3.5-5.3) mmol/L Chloride 100 (100-110) mmol/L Carbon Dioxide 22 (21-32) mmol/L BUN 8 (7-18) mg/dL Creatinine 1.0 (0.70-1.30) mg/dL Est Cr Clr Drug Dosing TNP Estimated GFR (MDRD) > 60 (>60) BUN/Creatinine Ratio 8.0 L (9-20) Glucose 170 H (80-116) mg/dL Calcium 8.2 L (8.6-10.2) mg/dL Magnesium (1.8-2.5) mg/dL Total Bilirubin 0.5 (0.1-1.3) mg/dL AST 24 (5-25) IU/L ALT 79 H (12-36) U/L Alkaline Phosphatase 100 (56-112) IU/L Total Protein 6.9 (6.0-8.0) g/dL Albumin 3.3 L (3.5-5.2) g/dL Globulin 3.6 g/dL Albumin/Globulin Ratio 0.9 TSH, Ultra Sensitive (0.36-3.74) IU/mL Salicylates (<2.8) mg/dL Urine Opiates Screen (NEGATIVE) Ur Oxycodone Screen (NEGATIVE) Ur Propoxyphene Screen (NEGATIVE) Acetaminophen (<2) ug/mL Ur Barbituates Screen (NEGATIVE) Ur Tricyclics Screen (NEGATIVE) Ur Phencyclidine Scrn (NEGATIVE) Ur Amphetamine Screen (NEGATIVE) Urine MDMA Screen (NEGATIVE) U Benzodiazepines Scrn (NEGATIVE) U Cocaine Metab Screen (NEGATIVE) U Marijuana (THC) Screen (NEGATIVE) Ethyl Alcohol 0.14 H (<0.03) % SARS-CoV-2 RNA (VERNA) (NEGATIVE) 11/11/20 11/11/20 11/11/20 Range/Units 05:50 11:18 14:10 WBC (3.2-10.1) x10-3/uL RBC (3.90-5.90) x10(6)uL Hgb (12.9-17.7) g/dL Hct (38.3-50.1) % MCV (80.8-98.7) fL MCH (27.0-33.3) pg MCHC (28.7-35.3) g/dL RDW (12.4-15.0) % Plt Count (117-477) x10(3)uL MPV (6.7-11.0) fL Neut % (Auto) (40.3-71.8) % Lymph % (Auto) (15.8-45.3) % Bell % (Auto) (5.5-15.2) % Eos % (Auto) (0.1-6.8) % Baso % (Auto) (0.3-3.8) % Neut # (Auto) (1.7-6.9) x10-3/uL Lymph # (Auto) (0.5-4.5) x10-3/uL Bell # (Auto) (0.0-1.2) x10-3/uL Eos # (Auto) (0.0-0.6) x10-3/uL Baso # (Auto) (0.0-0.3) x10-3/uL Sodium 140 (135-145) mmol/L Potassium 3.1 L (3.5-5.3) mmol/L Chloride 103 (100-110) mmol/L Carbon Dioxide 26 (21-32) mmol/L BUN 8 (7-18) mg/dL Creatinine 1.0 (0.70-1.30) mg/dL Est Cr Clr Drug Dosing 110.51 Estimated GFR (MDRD) > 60 (>60) BUN/Creatinine Ratio 8.0 L (9-20) Glucose 123 H (80-116) mg/dL Calcium 7.7 L (8.6-10.2) mg/dL Magnesium 2.0 (1.8-2.5) mg/dL Total Bilirubin (0.1-1.3) mg/dL AST (5-25) IU/L ALT (12-36) U/L Alkaline Phosphatase (56-112) IU/L Total Protein (6.0-8.0) g/dL Albumin (3.5-5.2) g/dL Globulin g/dL Albumin/Globulin Ratio TSH, Ultra Sensitive (0.36-3.74) IU/mL Salicylates 0.2 L (<2.8) mg/dL Urine Opiates Screen Negative (NEGATIVE) Ur Oxycodone Screen Positive (NEGATIVE) Ur Propoxyphene Screen Negative (NEGATIVE) Acetaminophen < 2 L (<2) ug/mL Ur Barbituates Screen Negative (NEGATIVE) Ur Tricyclics Screen Positive H (NEGATIVE) Ur Phencyclidine Scrn Negative (NEGATIVE) Ur Amphetamine Screen Positive H (NEGATIVE) Urine MDMA Screen Positive H (NEGATIVE) U Benzodiazepines Scrn Negative (NEGATIVE) U Cocaine Metab Screen Negative (NEGATIVE) U Marijuana (THC) Screen Negative (NEGATIVE) Ethyl Alcohol (<0.03) % SARS-CoV-2 RNA (VERNA) (NEGATIVE) 11/11/20 11/11/20 11/11/20 Range/Units 15:00 15:00 15:00 WBC (3.2-10.1) x10-3/uL RBC (3.90-5.90) x10(6)uL Hgb (12.9-17.7) g/dL Hct (38.3-50.1) % MCV (80.8-98.7) fL MCH (27.0-33.3) pg MCHC (28.7-35.3) g/dL RDW (12.4-15.0) % Plt Count (117-477) x10(3)uL MPV (6.7-11.0) fL Neut % (Auto) (40.3-71.8) % Lymph % (Auto) (15.8-45.3) % Bell % (Auto) (5.5-15.2) % Eos % (Auto) (0.1-6.8) % Baso % (Auto) (0.3-3.8) % Neut # (Auto) (1.7-6.9) x10-3/uL Lymph # (Auto) (0.5-4.5) x10-3/uL Bell # (Auto) (0.0-1.2) x10-3/uL Eos # (Auto) (0.0-0.6) x10-3/uL Baso # (Auto) (0.0-0.3) x10-3/uL Sodium 140 (135-145) mmol/L Potassium 3.6 (3.5-5.3) mmol/L Chloride 101 (100-110) mmol/L Carbon Dioxide 26 (21-32) mmol/L BUN 6 L (7-18) mg/dL Creatinine 1.0 (0.70-1.30) mg/dL Est Cr Clr Drug Dosing 110.51 Estimated GFR (MDRD) > 60 (>60) BUN/Creatinine Ratio 6.0 L (9-20) Glucose 107 (80-116) mg/dL Calcium 8.0 L (8.6-10.2) mg/dL Magnesium (1.8-2.5) mg/dL Total Bilirubin (0.1-1.3) mg/dL AST (5-25) IU/L ALT (12-36) U/L Alkaline Phosphatase (56-112) IU/L Total Protein (6.0-8.0) g/dL Albumin (3.5-5.2) g/dL Globulin g/dL Albumin/Globulin Ratio TSH, Ultra Sensitive 1.31 (0.36-3.74) IU/mL Salicylates (<2.8) mg/dL Urine Opiates Screen (NEGATIVE) Ur Oxycodone Screen (NEGATIVE) Ur Propoxyphene Screen (NEGATIVE) Acetaminophen (<2) ug/mL Ur Barbituates Screen (NEGATIVE) Ur Tricyclics Screen (NEGATIVE) Ur Phencyclidine Scrn (NEGATIVE) Ur Amphetamine Screen (NEGATIVE) Urine MDMA Screen (NEGATIVE) U Benzodiazepines Scrn (NEGATIVE) U Cocaine Metab Screen (NEGATIVE) U Marijuana (THC) Screen (NEGATIVE) Ethyl Alcohol < 0.03 (<0.03) % SARS-CoV-2 RNA (VERNA) (NEGATIVE) 11/11/20 11/11/20 11/11/20 Range/Units 15:00 15:00 19:45 WBC (3.2-10.1) x10-3/uL RBC (3.90-5.90) x10(6)uL Hgb (12.9-17.7) g/dL Hct (38.3-50.1) % MCV (80.8-98.7) fL MCH (27.0-33.3) pg MCHC (28.7-35.3) g/dL RDW (12.4-15.0) % Plt Count (117-477) x10(3)uL MPV (6.7-11.0) fL Neut % (Auto) (40.3-71.8) % Lymph % (Auto) (15.8-45.3) % Bell % (Auto) (5.5-15.2) % Eos % (Auto) (0.1-6.8) % Baso % (Auto) (0.3-3.8) % Neut # (Auto) (1.7-6.9) x10-3/uL Lymph # (Auto) (0.5-4.5) x10-3/uL Bell # (Auto) (0.0-1.2) x10-3/uL Eos # (Auto) (0.0-0.6) x10-3/uL Baso # (Auto) (0.0-0.3) x10-3/uL Sodium (135-145) mmol/L Potassium (3.5-5.3) mmol/L Chloride (100-110) mmol/L Carbon Dioxide (21-32) mmol/L BUN (7-18) mg/dL Creatinine (0.70-1.30) mg/dL Est Cr Clr Drug Dosing Estimated GFR (MDRD) (>60) BUN/Creatinine Ratio (9-20) Glucose (80-116) mg/dL Calcium (8.6-10.2) mg/dL Magnesium (1.8-2.5) mg/dL Total Bilirubin (0.1-1.3) mg/dL AST (5-25) IU/L ALT (12-36) U/L Alkaline Phosphatase (56-112) IU/L Total Protein (6.0-8.0) g/dL Albumin (3.5-5.2) g/dL Globulin g/dL Albumin/Globulin Ratio TSH, Ultra Sensitive (0.36-3.74) IU/mL Salicylates 0.3 L (<2.8) mg/dL Urine Opiates Screen (NEGATIVE) Ur Oxycodone Screen (NEGATIVE) Ur Propoxyphene Screen (NEGATIVE) Acetaminophen < 2 L (<2) ug/mL Ur Barbituates Screen (NEGATIVE) Ur Tricyclics Screen (NEGATIVE) Ur Phencyclidine Scrn (NEGATIVE) Ur Amphetamine Screen (NEGATIVE) Urine MDMA Screen (NEGATIVE) U Benzodiazepines Scrn (NEGATIVE) U Cocaine Metab Screen (NEGATIVE) U Marijuana (THC) Screen (NEGATIVE) Ethyl Alcohol (<0.03) % SARS-CoV-2 RNA (VERNA) Negative (NEGATIVE) Meds: Medications Discontinued Medications Generic Name Dose Route Start Last Admin Trade Name Freq PRN Reason Stop Dose Admin Acetaminophen 1,000 mg 11/11/20 19:45 11/11/20 19:54 Acetaminophen 500 Mg Tab PO 11/11/20 19:46 1,000 mg ONETIME ONE Administration Sodium Chloride 1,000 mls @ 150 mls/hr 11/11/20 06:00 11/11/20 08:45 Normal Saline IV 150 mls/hr ASDIRECTED ROSAURA Infusion Potassium Chloride 10 meq/ 100 mls @ 100 mls/hr 11/11/20 06:22 11/11/20 06:29 Premix IV 11/11/20 07:21 100 mls/hr ONETIME ONE Administration Sodium Chloride 1,000 mls @ 125 mls/hr 11/11/20 10:00 11/11/20 10:05 Normal Saline IV 125 mls/hr ASDIRECTED ROSAURA Administration Potassium Chloride 10 meq/ 100 mls @ 100 mls/hr 11/11/20 12:10 11/11/20 12:17 Premix IV 11/11/20 13:09 100 mls/hr ONETIME ONE Administration Lorazepam 1 mg 11/11/20 19:45 11/11/20 19:54 Lorazepam 1 Mg Tab PO 11/11/20 19:46 1 mg ONETIME ONE Administration Lorazepam 1 mg 11/12/20 05:28 11/12/20 05:34 Lorazepam 1 Mg Tab PO 11/12/20 05:29 1 mg ONETIME ONE Administration Sodium Chloride 10 ml 11/11/20 05:39 Sodium Chloride 0.9% 10 Ml Syringe FLUSH ASDIRECTED PRN Keep Vein Open Departure - Departure Time of Disposition: 19:19 Disposition: DC/Tfer to Other 70 Clinical Impression: History of drug overdose, Hypokalemia, Deliberate medication overdose Alcohol intoxication Qualifiers: Complication of substance-induced condition: with delirium Qualified Code(s): F10.921 - Alcohol use, unspecified with intoxication delirium - Discharge Information *PRESCRIPTION DRUG MONITORING PROGRAM REVIEWED*: Not Applicable *COPY OF PRESCRIPTION DRUG MONITORING REPORT IN PATIENT SEB: Not Applicable Instructions: Chemical Dependency, Intentional Drug Overdose, Alcohol Intoxication Referrals: PCP,None [Primary Care Provider] - Forms: ED Department Discharge Sepsis Event Note (ED) - Evaluation Sepsis Screening Result: No Definite Risk - Problem List & Annotations (1) Alcohol intoxication SNOMED Code(s): 60045517 Code(s): F10.929 - ALCOHOL USE, UNSPECIFIED WITH INTOXICATION, UNSPECIFIED Status: Acute Qualifiers: Complication of substance-induced condition: with delirium Qualified Code(s): F10.921 - Alcohol use, unspecified with intoxication delirium (2) Medication overdose SNOMED Code(s): 26736316 Code(s): T50.901A - POISONING BY UNSP DRUG/MEDS/BIOL SUBST, ACCIDENTAL, INIT Status: Acute Qualifiers: Encounter type: initial encounter Injury intent: intentional self-harm Qualified Code(s): T50.902A - Poisoning by unspecified drugs, medicaments and biological substances, intentional self-harm, initial encounter
--- NOTE | 2020-11-21 19:20 | PCM.EKG ---
#1 Interpretation EKG Date: 11/11/20 Rhythm: NSR [place]: Normal P-Wave: Present
--- NOTE | 2020-11-21 19:21 | PCM.EKG ---
#2 Interpretation EKG Date: 11/12/20 Rhythm: NSR [place]: Normal P-Wave: Present QRS: Normal
== END 2020-11-12 13:35 | disposition other institution (70) ==
LOC: FB.ED 05:25
DX: T43.592A Poisoning by other antipsychotics and neuroleptics, intentional self-harm, initial encounter (principal); E87.6 Hypokalemia; F10.121 Alcohol abuse with intoxication delirium; R00.0 Tachycardia, unspecified; I10 Essential (primary) hypertension; E66.9 Obesity, unspecified; Z68.38 Body mass index [BMI] 38.0-38.9, adult; Z79.899 Other long term (current) drug therapy; Z20.822 Contact with and (suspected) exposure to COVID-19; Y90.0 Blood alcohol level of less than 20 mg/100 ml
CPT/HCPCS: 36415; 80048; 80053; 80143; 80179; 80305; 80307; 83735; 84443; 85025; 87635; 93005; 93010; 96365; 96366; 99285; A9270; J3480; J7030; U0002

== ENCOUNTER 2021-03-02 12:03 | Emergency (ER) | payer OTHER ==
--- NOTE | 2021-03-02 12:25 | EDM.PDOCBH ---
ED HPI GENERAL MEDICAL PROBLEM - General Chief Complaint: Behavioral/Psych Stated Complaint: MENTAL HEALTH Time Seen by Provider: 03/02/21 12:10 Source of Information: Reports: Patient, Police History Limitations: Reports: No Limitations - History of Present Illness INITIAL COMMENTS - FREE TEXT/NARRATIVE: pt is brought in by Police. Was arrested on an outstanding warrant. Was brought here for medical clearance pt is high risk of self harm. has had drug overdose attempts 5 times in the past , 2 landed him in the ICU. this am called [facility] and told them he was suicidal. Did not do it as he did not have enough pills to committ suicide Onset: Today Onset Date: 03/02/21 Duration: Getting Worse Quality: Reports: Same as Previous Episode Severity: Moderate Improves with: Reports: None Worsens with: Reports: None - Related Data Allergies Allergy/AdvReac Type Severity Reaction Status Date / Time No Known Allergies Allergy Verified 07/13/20 21:42 Home Meds: Home Meds .Amlodipine 1 tab PO DAILY 07/08/20 [History] .Aripiprazole 1 dose INJECT Q30D 07/08/20 [History] .Lisinopril 1 tab PO DAILY 07/08/20 [History] .Prozac 40 mg PO DAILY 07/08/20 [History] Past Medical History Cardiovascular History: Reports: Hypertension Musculoskeletal History: Reports: Other (See Below) Other Musculoskeletal History: Chronic right shoulder pain, s/p duty. Psychiatric History: Reports: Other (See Below) Other Psychiatric History: Alcohol and drug misuse. Behavioral and mood disorders. Endocrine/Metabolic History: Reports: Obesity/BMI 30+ - Past Surgical History HEENT Surgical History: Reports: LASIK - History Comment History Comment: Patient was completely uncooperative with this and left AWOL prior to giving any of this information. Social & Family History - Family History Family Medical History: Unobtainable ED ROS GENERAL - Review of Systems Review Of Systems: Comprehensive ROS is negative, except as noted in HPI. ED EXAM, BEHAVIORAL HEALTH - Physical Exam Exam: See Below Exam Limited By: No Limitations General Appearance: Alert, WD/WN, No Apparent Distress Eye Exam: Bilateral Eye: EOMI Ears: Normal External Exam Nose: Normal Inspection Throat/Mouth: Normal Oropharynx, Normal Voice, No Airway Compromise Head: Atraumatic, Normocephalic Neck: Normal Inspection, Supple, Non-Tender Cardiovascular: Normal Peripheral Pulses, Regular Rate, Rhythm GI/Abdominal: Soft, Non-Tender Back Exam: Normal Inspection, Full Range of Motion Extremities: Normal Inspection, Normal Range of Motion, Non-Tender, No Pedal Edema, Normal Capillary Refill Neurological: Alert, Normal Mood/Affect, CN II-XII Intact, Normal Cognition Psychiatric: Alert, Depressed Mood, Flat Affect, Poor Eye Contact, Withdrawn, Suicidal Plan, Suicidal Thoughts Skin Exam: Warm, Dry, Intact COURSE, BEHAVIORAL HEALTH COMP - Course Vital Signs: Last Vital Signs Temp 36.8 C 03/02/21 16:10 Pulse 94 03/02/21 16:10 Resp 16 03/02/21 16:10 BP 143/98 H 03/02/21 16:10 Pulse Ox 97 03/02/21 16:10 Orders, Labs, Meds: Active Orders 24 hr Category Date Time Status One To One Therapy [] Routine Oth 03/02/21 15:33 Ordered Laboratory Tests 03/02/21 03/02/21 03/02/21 Range/Units 12:40 12:40 12:40 WBC 5.1 (3.2-10.1) x10-3/uL RBC 6.02 H (3.90-5.90) x10(6)uL Hgb 18.4 H (12.9-17.7) g/dL Hct 54.5 H (38.3-50.1) % MCV 90.5 (80.8-98.7) fL MCH 30.6 (27.0-33.3) pg MCHC 33.8 (28.7-35.3) g/dL RDW 14.5 (12.4-15.0) % Plt Count 233 (117-477) x10(3)uL MPV 6.8 (6.7-11.0) fL Neut % (Auto) 51.9 (40.3-71.8) % Lymph % (Auto) 33.8 (15.8-45.3) % [place] % (Auto) 9.9 (5.5-15.2) % Eos % (Auto) 3.6 (0.1-6.8) % Baso % (Auto) 0.8 (0.3-3.8) % Neut # (Auto) 2.7 (1.7-6.9) x10-3/uL Lymph # (Auto) 1.7 (0.5-4.5) x10-3/uL [place] # (Auto) 0.5 (0.0-1.2) x10-3/uL Eos # (Auto) 0.2 (0.0-0.6) x10-3/uL Baso # (Auto) 0.0 (0.0-0.3) x10-3/uL Sodium 144 (135-145) mmol/L Potassium 3.3 L (3.5-5.3) mmol/L Chloride 103 (100-110) mmol/L Carbon Dioxide 25 (21-32) mmol/L BUN 5 L (7-18) mg/dL Creatinine 1.2 (0.70-1.30) mg/dL Est Cr Clr Drug Dosing TNP Estimated GFR (MDRD) > 60 (>60) BUN/Creatinine Ratio 4.2 L (9-20) Glucose 93 (80-116) mg/dL Calcium 8.8 (8.6-10.2) mg/dL TSH, Ultra Sensitive 2.25 (0.36-3.74) IU/mL Urine Opiates Screen (NEGATIVE) Ur Oxycodone Screen (NEGATIVE) Ur Propoxyphene Screen (NEGATIVE) Acetaminophen (<2) ug/mL Ur Barbituates Screen (NEGATIVE) Ur Tricyclics Screen (NEGATIVE) Ur Phencyclidine Scrn (NEGATIVE) Ur Amphetamine Screen (NEGATIVE) Urine MDMA Screen (NEGATIVE) U Benzodiazepines Scrn (NEGATIVE) U Cocaine Metab Screen (NEGATIVE) U Marijuana (THC) Screen (NEGATIVE) Ethyl Alcohol (<0.03) % SARS-CoV-2 RNA (VERNA) (NEGATIVE) 03/02/21 03/02/21 03/02/21 Range/Units 12:40 12:40 14:40 WBC (3.2-10.1) x10-3/uL RBC (3.90-5.90) x10(6)uL Hgb (12.9-17.7) g/dL Hct (38.3-50.1) % MCV (80.8-98.7) fL MCH (27.0-33.3) pg MCHC (28.7-35.3) g/dL RDW (12.4-15.0) % Plt Count (117-477) x10(3)uL MPV (6.7-11.0) fL Neut % (Auto) (40.3-71.8) % Lymph % (Auto) (15.8-45.3) % [place] % (Auto) (5.5-15.2) % Eos % (Auto) (0.1-6.8) % Baso % (Auto) (0.3-3.8) % Neut # (Auto) (1.7-6.9) x10-3/uL Lymph # (Auto) (0.5-4.5) x10-3/uL [place] # (Auto) (0.0-1.2) x10-3/uL Eos # (Auto) (0.0-0.6) x10-3/uL Baso # (Auto) (0.0-0.3) x10-3/uL Sodium (135-145) mmol/L Potassium (3.5-5.3) mmol/L Chloride (100-110) mmol/L Carbon Dioxide (21-32) mmol/L BUN (7-18) mg/dL Creatinine (0.70-1.30) mg/dL Est Cr Clr Drug Dosing Estimated GFR (MDRD) (>60) BUN/Creatinine Ratio (9-20) Glucose (80-116) mg/dL Calcium (8.6-10.2) mg/dL TSH, Ultra Sensitive (0.36-3.74) IU/mL Urine Opiates Screen Negative (NEGATIVE) Ur Oxycodone Screen Negative (NEGATIVE) Ur Propoxyphene Screen Negative (NEGATIVE) Acetaminophen < 2 L (<2) ug/mL Ur Barbituates Screen Negative (NEGATIVE) Ur Tricyclics Screen Negative (NEGATIVE) Ur Phencyclidine Scrn Negative (NEGATIVE) Ur Amphetamine Screen Positive H (NEGATIVE) Urine MDMA Screen Positive H (NEGATIVE) U Benzodiazepines Scrn Negative (NEGATIVE) U Cocaine Metab Screen Negative (NEGATIVE) U Marijuana (THC) Screen Negative (NEGATIVE) Ethyl Alcohol 0.16 H* (<0.03) % SARS-CoV-2 RNA (VERNA) (NEGATIVE) 03/02/21 Range/Units 14:40 WBC (3.2-10.1) x10-3/uL RBC (3.90-5.90) x10(6)uL Hgb (12.9-17.7) g/dL Hct (38.3-50.1) % MCV (80.8-98.7) fL MCH (27.0-33.3) pg MCHC (28.7-35.3) g/dL RDW (12.4-15.0) % Plt Count (117-477) x10(3)uL MPV (6.7-11.0) fL Neut % (Auto) (40.3-71.8) % Lymph % (Auto) (15.8-45.3) % [place] % (Auto) (5.5-15.2) % Eos % (Auto) (0.1-6.8) % Baso % (Auto) (0.3-3.8) % Neut # (Auto) (1.7-6.9) x10-3/uL Lymph # (Auto) (0.5-4.5) x10-3/uL [place] # (Auto) (0.0-1.2) x10-3/uL Eos # (Auto) (0.0-0.6) x10-3/uL Baso # (Auto) (0.0-0.3) x10-3/uL Sodium (135-145) mmol/L Potassium (3.5-5.3) mmol/L Chloride (100-110) mmol/L Carbon Dioxide (21-32) mmol/L BUN (7-18) mg/dL Creatinine (0.70-1.30) mg/dL Est Cr Clr Drug Dosing Estimated GFR (MDRD) (>60) BUN/Creatinine Ratio (9-20) Glucose (80-116) mg/dL Calcium (8.6-10.2) mg/dL TSH, Ultra Sensitive (0.36-3.74) IU/mL Urine Opiates Screen (NEGATIVE) Ur Oxycodone Screen (NEGATIVE) Ur Propoxyphene Screen (NEGATIVE) Acetaminophen (<2) ug/mL Ur Barbituates Screen (NEGATIVE) Ur Tricyclics Screen (NEGATIVE) Ur Phencyclidine Scrn (NEGATIVE) Ur Amphetamine Screen (NEGATIVE) Urine MDMA Screen (NEGATIVE) U Benzodiazepines Scrn (NEGATIVE) U Cocaine Metab Screen (NEGATIVE) U Marijuana (THC) Screen (NEGATIVE) Ethyl Alcohol (<0.03) % SARS-CoV-2 RNA (VERNA) Negative (NEGATIVE) Medications Discontinued Medications Generic Name Dose Route Start Last Admin Trade Name Cesar PRN Reason Stop Dose Admin Sodium Chloride 1,000 mls @ 999 mls/hr 03/02/21 13:15 03/02/21 13:20 Normal Saline IV 999 mls/hr ASDIRECTED ROSAURA Administration Potassium Chloride 40 meq 03/02/21 14:06 03/02/21 15:22 Potassium Chloride 20 Meq Tab.Er PO 03/02/21 14:07 40 meq ONETIME ONE Administration Re-Assessment/Re-Exam: noted to have Etoh in his system , IVF started on him Referral made to crisis center ( pt had call and discussed with crisis management) discussed with same and requested transfer to [facility] accepted pt for admission Re-Assessment/Re-Exam Date: 03/02/21 Medical Clearance: 03/02/21 14:14 pt no cleared medically will be sent to [facility] for further evaluation and further management Discharge vs Psych Eval/Treatment:: 03/02/21 16:01 Called made to [facility] : pt accepted for transfer by Dr Collado . Pt will be transported by the police Departure - Departure Time of Disposition: 16:20 Disposition: DC/Tfer to [facility] Condition: Fair Clinical Impression: Post traumatic stress disorder (PTSD), Depression with suicidal ideation, Hypokalemia, History of drug overdose, History of suicidal ideation Alcohol intoxication Qualifiers: Complication of substance-induced condition: with delirium Qualified Code(s): F10.921 - Alcohol use, unspecified with intoxication delirium - Discharge Information *PRESCRIPTION DRUG MONITORING PROGRAM REVIEWED*: Not Applicable *COPY OF PRESCRIPTION DRUG MONITORING REPORT IN PATIENT SEB: Not Applicable Referrals: Fabiola Boles NP [Primary Care Provider] - Forms: ED Department Discharge Sepsis Event Note (ED) - Focused Exam Vital Signs: Vital Signs Temp Pulse Resp BP Pulse Ox 03/02/21 16:10 36.8 C 94 16 143/98 H 97 - My Orders Last 24 Hours: My Active Orders 03/02/21 15:33 One To One Therapy [] Routine - Assessment/Plan Last 24 Hours: My Active Orders 03/02/21 15:33 One To One Therapy [] Routine
[2021-03-02] MEDS: Sodium Chloride 0.9% 1,000 ML IV SCH (13:20)
[2021-03-02] MEDS: Potassium Chloride 20 MEQ Tab.ER PO ONE (15:22)
== END 2021-03-02 16:20 ==
LOC: FB.ED 12:03
DX: F32.9 Major depressive disorder, single episode, unspecified (principal); F43.10 Post-traumatic stress disorder, unspecified; F10.121 Alcohol abuse with intoxication delirium; I10 Essential (primary) hypertension; E66.9 Obesity, unspecified; Z79.899 Other long term (current) drug therapy; Z68.37 Body mass index [BMI] 37.0-37.9, adult; Z20.822 Contact with and (suspected) exposure to COVID-19; Y90.5 Blood alcohol level of 100-119 mg/100 ml
CPT/HCPCS: 36415; 80048; 80143; 80305-QW; 80307; 84443; 85025; 99285; A9270-GY; J7030; U0002

== ENCOUNTER 2021-07-08 22:30 | Emergency (ER) | payer MEDICAID, OTHER ==
[2021-07-08] MEDS ORDERED: Ketorolac 30 MG/ML SDV IM ONE (23:09)
[2021-07-08] MEDS: cefTRIAXone 250 MG Vial IM ONE ×2 (23:17→23:18)
--- NOTE | 2021-07-08 23:17 | EDM.PDOC ---
ED HPI GENERAL MEDICAL PROBLEM - General Stated Complaint: HURT ARM Time Seen by Provider: 07/08/21 22:40 Source of Information: Reports: Patient History Limitations: Reports: No Limitations - History of Present Illness INITIAL COMMENTS - FREE TEXT/NARRATIVE: c/o rash pt injecting amphetamine, using multiple drugs, "as often as I can get ahold of it" 100% service connected disability including PTSD not taking his regular meds no car, says his father can bring him to ED daily in morning for IM ceftriaxone, will need to be admitted if poor therapeutic response to ceftriaxone 1 gm IM daily pt denies h/o MRSA or cellulitis or abscess in past Right Arm Pain Score (Numeric/FACES): 6 - Related Data Allergies Allergy/AdvReac Type Severity Reaction Status Date / Time No Known Allergies Allergy Verified 07/13/20 21:42 Home Meds: Home Meds .Amlodipine 1 tab PO DAILY 07/08/20 [History] .Aripiprazole 1 dose INJECT Q30D 07/08/20 [History] .Lisinopril 1 tab PO DAILY 07/08/20 [History] .Prozac 40 mg PO DAILY 07/08/20 [History] Past Medical History Cardiovascular History: Reports: Hypertension Musculoskeletal History: Reports: Other (See Below) Other Musculoskeletal History: Chronic right shoulder pain, s/p duty. Psychiatric History: Reports: Other (See Below) Other Psychiatric History: Alcohol and drug misuse. Behavioral and mood diso rders. Endocrine/Metabolic History: Reports: Obesity/BMI 30+ - Past Surgical History HEENT Surgical History: Reports: LASIK - History Comment History Comment: Patient was completely uncooperative with this and left AWOL prior to giving any of this information. Social & Family History - Family History Family Medical History: Unobtainable - Caffeine Use Caffeine Use: Reports: Soda ED ROS GENERAL - Review of Systems Review Of Systems: See Below Constitutional: Reports: No Symptoms HEENT: Reports: No Symptoms Respiratory: Reports: No Symptoms Cardiovascular: Reports: No Symptoms Endocrine: Reports: No Symptoms GI/Abdominal: Reports: No Symptoms : Reports: No Symptoms Musculoskeletal: Reports: No Symptoms Skin: Reports: Change in Color Neurological: Reports: No Symptoms Psychiatric: Reports: No Symptoms Hematologic/Lymphatic: Reports: No Symptoms Immunologic: Reports: No Symptoms ED EXAM, SKIN/RASH Exam: See Below Exam Limited By: No Limitations General Appearance: Alert Neck: Normal Inspection Respiratory/Chest: Lungs Clear Cardiovascular: Regular Rate, Rhythm Extremities: Other (red and indurated 1/3 up elbow without streaking on right side, no lymph nodes epitrochlear or axillary on right side, induration extends down dorsally to wrist, inc'd warm) Neurological: Alert Lymphatic: No Adenopathy Course - Vital Signs Last Recorded V/S: Last Vital Signs Temp 36.5 C 07/08/21 22:50 Pulse 108 H 07/08/21 22:50 Resp 18 07/08/21 22:50 BP 151/94 H 07/08/21 22:50 Pulse Ox 95 07/08/21 22:50 - Orders/Labs/Meds Labs: Laboratory Tests 07/08/21 07/08/21 07/08/21 Range/Units 23:15 23:15 23:15 WBC 12.5 H (3.2-10.1) x10-3/uL RBC 5.36 (3.90-5.90) x10(6)uL Hgb 16.6 (12.9-17.7) g/dL Hct 49.1 (38.3-50.1) % MCV 91.7 (80.8-98.7) fL MCH 31.0 (27.0-33.3) pg MCHC 33.8 (28.7-35.3) g/dL RDW 14.5 (12.4-15.0) % Plt Count 232 (117-477) x10(3)uL MPV 6.3 L (6.7-11.0) fL Neut % (Auto) 74.2 H (40.3-71.8) % Lymph % (Auto) 12.7 L (15.8-45.3) % Marshall % (Auto) 11.6 (5.5-15.2) % Eos % (Auto) 1.2 (0.1-6.8) % Baso % (Auto) 0.3 (0.3-3.8) % Neut # (Auto) 9.2 H (1.7-6.9) x10-3/uL Lymph # (Auto) 1.6 (0.5-4.5) x10-3/uL Marshall # (Auto) 1.4 H (0.0-1.2) x10-3/uL Eos # (Auto) 0.1 (0.0-0.6) x10-3/uL Baso # (Auto) 0.0 (0.0-0.3) x10-3/uL Sodium 135 (135-145) mmol/L Potassium 3.1 L (3.5-5.3) mmol/L Chloride 98 L D (100-110) mmol/L Carbon Dioxide 23 (21-32) mmol/L BUN 5 L (7-18) mg/dL Creatinine 0.9 (0.70-1.30) mg/dL Est Cr Clr Drug Dosing 122.79 mL/min Estimated GFR (MDRD) > 60 (>60) BUN/Creatinine Ratio 5.6 L (9-20) Glucose 113 (80-116) mg/dL Calcium 8.5 L (8.6-10.2) mg/dL Total Bilirubin 1.9 H (0.1-1.3) mg/dL AST 19 D (5-25) IU/L ALT 43 H D (12-36) U/L Alkaline Phosphatase 99 (56-112) IU/L C-Reactive Protein 11.8 H* (0.5-0.9) mg/dL Total Protein 7.5 (6.0-8.0) g/dL Albumin 3.6 (3.5-5.2) g/dL Globulin 3.9 g/dL Albumin/Globulin Ratio 0.9 Meds: Medications Discontinued Medications Generic Name Dose Route Start Last Admin Trade Name Freq PRN Reason Stop Dose Admin Ceftriaxone Sodium 250 mg 07/08/21 23:09 07/08/21 23:18 Ceftriaxone 250 Mg Vial IM 07/08/21 23:10 Not Given ONETIME ONE Ceftriaxone Sodium 1 gm 07/08/21 23:18 07/08/21 23:21 Ceftriaxone 1 Gm Vial IM 07/08/21 23:19 1 gm ONETIME ONE Administration Ketorolac Tromethamine 30 mg 07/08/21 23:09 07/08/21 23:17 Ketorolac 30 Mg/Ml Sdv IM 07/08/21 23:10 30 mg ONETIME ONE Administration - Re-Assessments/Exams Free Text/Narrative Re-Assessment/Exam: 07/08/21 23:20 moderate induration without apparent abscess, avoided tx for 2d, does not have a car but can come each morning for IM ceftriaxone Departure - Departure Time of Disposition: 23:46 Disposition: Home, Self-Care 01 Condition: Good Clinical Impression: Cellulitis of right arm - Discharge Information *PRESCRIPTION DRUG MONITORING PROGRAM REVIEWED*: Not Applicable *COPY OF PRESCRIPTION DRUG MONITORING REPORT IN PATIENT SEB: Not Applicable Instructions: Cellulitis, Adult Referrals: PCP,None [Primary Care Provider] - Additional Instructions: Come to Emergency Department every morning this week for intramuscular ceftriaxone, which is a very potent cellulitis. See Dr Allen in Emergency Department in 4 days to switch to oral antibiotics. However, it is possible that any antibiotic may not work. Make sure a physician sees the arm the same day if there is any increase in redness and swelling. Sepsis Event Note (ED) - Evaluation Sepsis Screening Result: No Definite Risk - Focused Exam Vital Signs: Vital Signs Temp Pulse Resp BP Pulse Ox 07/08/21 22:50 36.5 C 108 H 18 151/94 H 95
[2021-07-08] MEDS ORDERED: cefTRIAXone 1 GM Vial IM ONE (23:18)
== END 2021-07-09 00:15 | disposition home or self-care (01) ==
LOC: FB.ED 22:30
DX: L03.113 Cellulitis of right upper limb (principal); I10 Essential (primary) hypertension; E66.9 Obesity, unspecified; Z68.34 Body mass index [BMI] 34.0-34.9, adult; Z79.899 Other long term (current) drug therapy
CPT/HCPCS: 36415; 80053; 85025; 86140; 96372; 99283; J0696; J1885

== ENCOUNTER 2021-08-09 16:21 | Emergency (ER) | payer MEDICAID ==
--- NOTE | 2021-08-09 17:12 | EDM.PDOCBH ---
ED HPI GENERAL MEDICAL PROBLEM - General Time Seen by Provider: 08/09/21 16:21 Source of Information: Reports: Patient, Family, Police History Limitations: Reports: Uncooperative - History of Present Illness INITIAL COMMENTS - FREE TEXT/NARRATIVE: c/o self injury 2 myman came to his house, he became argumentative, they had wanted to arrest him on 2 outstanding warrants, he became argumentative, threw himself down some steps, hit his head on the floor police came and are at bedside in ED, police say he is not under arrest, that he will not go to senior care pt yelling and being uncooperative here, wrists and ankles are handcuffed d/t his lack of cooperativity [facility] doc spoke with me and suggested ketamine 2-3 mg/kg IM if meds were needed as this would not drop his BP pt says he took a bottle of amlodipine this AM, however this story is not credible, he is being manipulative he was here 1m ago for cellulitis RUE after injecting himself, this has resolved pt has dysarthria although EMS reports this is baseline, EMS has seen pt multiple times and says he is prone to rage and violent outsides however, no violence directed towards others, shows no indication of depression, does not express wish to he is using his behavior to avoid arrest and to try to control the situation mother called and said "absolutely would not" monitor him overnight, that the state needed to step in because he was a mother said that pt's sister said that pt was dragged down the stairs by the police, however this is not credible either pt's father did pick him up last month when he was treated for a cellulitis and did not have a ride home, father could not be reached and mother reports that he has health issues last month pt reports that he uses as many street drugs as often as he can get ahold of them, pt with no interest in chemical dependency treatment - Related Data Allergies Allergy/AdvReac Type Severity Reaction Status Date / Time No Known Allergies Allergy Verified 07/13/20 21:42 Home Meds: Home Meds .Amlodipine 1 tab PO DAILY 07/08/20 [History] .Aripiprazole 1 dose INJECT Q30D 07/08/20 [History] .Lisinopril 1 tab PO DAILY 07/08/20 [History] .Prozac 40 mg PO DAILY 07/08/20 [History] Amoxicillin/Potassium Clav [Augmentin 875-125 Tablet] 1 each PO BID #20 tablet 07/12/21 [Rx] Past Medical History Cardiovascular History: Reports: Hypertension Musculoskeletal History: Reports: Other (See Below) Other Musculoskeletal History: Chronic right shoulder pain, s/p duty. Psychiatric History: Reports: Addiction, Anxiety, Depression, PTSD, Other (See Below) Other Psychiatric History: Alcohol and drug misuse. Behavioral and mood disorders. Endocrine/Metabolic History: Reports: Obesity/BMI 30+ - Past Surgical History HEENT Surgical History: Reports: LASIK - History Comment History Comment: Patient was completely uncooperative with this and left AWOL prior to giving any of this information. Social & Family History - Family History Family Medical History: Unobtainable - Caffeine Use Caffeine Use: Reports: None ED ROS GENERAL - Review of Systems Review Of Systems: See Below Constitutional: Reports: No Symptoms HEENT: Reports: No Symptoms Respiratory: Reports: No Symptoms Cardiovascular: Reports: No Symptoms Endocrine: Reports: No Symptoms GI/Abdominal: Reports: No Symptoms : Reports: No Symptoms Musculoskeletal: Reports: No Symptoms Skin: Reports: No Symptoms Neurological: Reports: Other (behavioral issues) Psychiatric: Reports: No Symptoms Hematologic/Lymphatic: Reports: No Symptoms Immunologic: Reports: No Symptoms ED EXAM, BEHAVIORAL HEALTH - Physical Exam Exam: See Below Exam Limited By: Uncooperative General Appearance: Alert, WD/WN Eye Exam: Bilateral Eye: EOMI, PERRL (4/4 mm, conjugate) Ears: Hearing Grossly Normal Nose: Normal Inspection Throat/Mouth: Normal Inspection, Normal Lips, Other (mild dysarthria that is chronic, talks in complete sentences) Head: Other (superficial abrasion just inside hairline R frontal of 2 cm length, no active bleeding, minimal STS, no ecchymosis, no bony tenderness) Neck: Normal Inspection, Supple, Non-Tender, Full Range of Motion. No: Lymphadenopathy (R), Lymphadenopathy (L) Respiratory/Chest: No Respiratory Distress, Lungs Clear, Normal Breath Sounds, No Accessory Muscle Use Cardiovascular: Regular Rate, Rhythm, No Edema, No Murmur GI/Abdominal: Soft, Non-Tender, No Distention Back Exam: Normal Inspection, Full Range of Motion, Other (spine with no point tender, rolls and moves in bed without difficulty) Extremities: Normal Range of Motion, Non-Tender, No Pedal Edema Neurological: Alert, CN II-XII Intact, No Motor/Sensory Deficits Psychiatric: Alert Skin Exam: Warm, Dry COURSE, BEHAVIORAL HEALTH COMP - Course Re-Assessment/Re-Exam: oppositional defiant behavior, refused even simple requests such as when RN asked him to put his leg back inside the rails no life threatening mental or chemical or physical injuries identified given his ongoing opp def behavior, there is no advantage in continuing to monitor him here, nevertheless he should return to ED at any time that he has additional sxs or needs further evaluation of medical or health concerns 6:55p pt has stopped being argumentative and manipulative, has been sleeping, [facility] police consulted with [facility] police re possibly keeping him in senior care there afternoon as pt has charges pending in [facility], however [facility] police declined [facility] police undid handcuffs (for pt's safety) and left ~1.5h ago, pt has not been a behavioral problem towards medical staff, just towards police pt is not an active threat to himself or others, angry and manipulative and oppositional in interactions with police 8:42p pt just woke up after sleeping for almost 2 hours, says he is ready to go home, has no c/o, will obtain a taxi 9:15p pt just left, pleasant and conversant, thanked us as he was leaving. TJ Valdez reports pt came back every noon for his ceftriaxone last month when he had cellulitis of his RUE which has cleared completely and has not reoccurred Departure - Departure Time of Disposition: 17:17 Disposition: Home, Self-Care 01 Condition: Fair Clinical Impression: Minor head injury, Oppositional defiant behavior - Discharge Information *PRESCRIPTION DRUG MONITORING PROGRAM REVIEWED*: Not Applicable *COPY OF PRESCRIPTION DRUG MONITORING REPORT IN PATIENT SEB: Not Applicable Instructions: Head Injury, Adult Referrals: PCP,None [Primary Care Provider] - Additional Instructions: Return to Emergency Department at any time if you are not feeling well. Additional tests and treatment can be done as needed. Stay in a safe environment. See your PCP in 3 days on Thursday.
== END 2021-08-09 20:45 | disposition home or self-care (01) ==
LOC: FB.ED 16:21
DX: S00.81XA Abrasion of other part of head, initial encounter (principal); I10 Essential (primary) hypertension; E66.9 Obesity, unspecified; Z68.28 Body mass index [BMI] 28.0-28.9, adult; Z79.899 Other long term (current) drug therapy; W22.09XA Striking against other stationary object, initial encounter
CPT/HCPCS: 99284

== ENCOUNTER 2021-09-04 | Emergency (ER) | payer BC, MEDICAID ==
[2021-09-04] MEDS ORDERED: cefTRIAXone 1 GM Vial IM ONE (00:57)
--- NOTE | 2021-09-04 00:58 | EDM.PDOC ---
ED HPI GENERAL MEDICAL PROBLEM - General Chief Complaint: Skin Complaint Stated Complaint: ARM PAIN Time Seen by Provider: 09/04/21 00:25 Source of Information: Reports: Patient - History of Present Illness INITIAL COMMENTS - FREE TEXT/NARRATIVE: c/o cellulitis of right forearm pt had a similar cellulitis 2 months ago tx'ed successfully with ceftriaxone 1 gm IM x 5 days followed by oral antibiotics pt continues to inject himself with IV drugs culture report from [facility] on 07-12-21 shows Clostridium perfringens sensitive to PCN, pip/tax, ertapenem, clinda, metronidazole pt noticed it earlier today and said that it has gotten worse in just 6 hours R anticubital region Pain Score (Numeric/FACES): 2 - Related Data Allergies Allergy/AdvReac Type Severity Reaction Status Date / Time No Known Allergies Allergy Verified 09/04/21 00:10 Home Meds: Home Meds .Amlodipine 10 mg PO DAILY 07/08/20 [History] .Aripiprazole 1 dose INJECT Q30D 07/08/20 [History] .Lisinopril 20 mg PO DAILY 07/08/20 [History] .Prozac 40 mg PO DAILY 07/08/20 [History] Amoxicillin/Clavulanate K [Augmentin 875-125 MG] 1 tab PO BID #14 tablet 09/04/21 [Rx] Past Medical History Cardiovascular History: Reports: Hypertension Musculoskeletal History: Reports: Other (See Below) Other Musculoskeletal History: Chronic right shoulder pain, s/p duty. Neurological History: Reports: Migraines Psychiatric History: Reports: Addiction, Anxiety, Depression, PTSD, Other (See Below) Other Psychiatric History: Alcohol and drug misuse. Behavioral and mood disorders. Endocrine/Metabolic History: Reports: Obesity/BMI 30+ Dermatologic History: Reports: Cellulitis - Past Surgical History HEENT Surgical History: Reports: LASIK - History Comment History Comment: Patient was completely uncooperative with this and left AWOL prior to giving any of this information. Social & Family History - Family History Family Medical History: Unobtainable - Tobacco Use Tobacco Use Status *Q: Never Tobacco User - Caffeine Use Caffeine Use: Reports: Coffee, Soda - Alcohol Use Days Per Week of Alcohol Use: 7 Number of Drinks Per Day: 10 Total Drinks Per Week: 70 - Recreational Drug Use Recreational Drug Use: Yes Recreational Drug Type: Reports: Methamphetamine Recreational Drug Use Frequency: Daily ED ROS GENERAL - Review of Systems Review Of Systems: See Below Constitutional: Reports: No Symptoms HEENT: Reports: No Symptoms Respiratory: Reports: No Symptoms Cardiovascular: Reports: No Symptoms Endocrine: Reports: No Symptoms GI/Abdominal: Reports: No Symptoms : Reports: No Symptoms Musculoskeletal: Reports: No Symptoms Skin: Reports: Rash Neurological: Reports: No Symptoms Psychiatric: Reports: No Symptoms Hematologic/Lymphatic: Reports: No Symptoms Immunologic: Reports: No Symptoms ED EXAM, SKIN/RASH Exam: See Below General Appearance: Alert, WD/WN, No Apparent Distress Skin: Other (pt wearing long sleeves, pt unwilling to show me his skin, he did allow me to palpate the R AC thru the cloth, there are 2 firm small firm areas (see below)) Lymphatic: No Adenopathy Comments: indurated areas are 5 x 3 x 2 mm and 4 x 3 x 2 mm, fairly small no clinical evidence of abscess pt indicated that the redness extends about 5 cm above and below the AC fossa, however I was not allowed to look at it directly, pt appeared embarrassed, not psychotic, not clear why he declined direct examination Course - Vital Signs Last Recorded V/S: Last Vital Signs Temp 36.6 C 09/04/21 00:04 Pulse 107 H 09/04/21 00:04 Resp 20 09/04/21 00:04 BP 180/114 H 09/04/21 00:04 Pulse Ox 100 09/04/21 00:04 - Re-Assessments/Exams Free Text/Narrative Re-Assessment/Exam: 09/04/21 01:13 very likely C perfringens again which responded well to antbxs, he is requesting an injection, is willing to take oral antibiotics and to be seen in f/u in 1 wk, he agrees to return to ED if it is getting worse BP inc'd and will need to be followed as outpt, no gross jerks although is a little jumpy and appears to be under residual effects of meth no crepitus, no clinical evidence of nec Departure - Departure Time of Disposition: 00:58 Disposition: Home, Self-Care 01 Condition: Good Clinical Impression: Cellulitis of left upper extremity, Clostridial infection, Intravenous drug abuse - Discharge Information *PRESCRIPTION DRUG MONITORING PROGRAM REVIEWED*: Not Applicable *COPY OF PRESCRIPTION DRUG MONITORING REPORT IN PATIENT SEB: Not Applicable Prescriptions: Amoxicillin/Clavulanate K [Augmentin 875-125 MG] 1 tab PO BID #14 tablet Instructions: Cellulitis, Adult Referrals: PCP,Not In Area [Primary Care Provider] - Additional Instructions: The culture that was done of the skin of the right elbow crease on July 12 grew out a bacteria called Clostridium perfringens. This bacteria has a reputation of causing particularly nasty infection as it is much more aggressive and spreads more quickly than most skin bacteria. While it is important to take an antibiotic for a sufficient length of time to completely eradicate infection, you do not want to take it for too long as this can sometimes cause the bacteria to develop resistance to the antibiotic, which can cause if more problems in the future. Beginning tomorrow, take amoxicillin-clavulanate 875-125 mg 1 tab 2 times a day for 7 days. See your doctor in 7 days to determine if you need to stay on the antibiotic longer. Sepsis Event Note (ED) - Evaluation Sepsis Screening Result: No Definite Risk - Focused Exam Vital Signs: Vital Signs Temp Pulse Resp BP Pulse Ox 09/04/21 00:04 36.6 C 107 H 20 180/114 H 100
== END 2021-09-04 01:28 | disposition home or self-care (01) ==
LOC: FB.ED
DX: L03.113 Cellulitis of right upper limb (principal); F19.10 Other psychoactive substance abuse, uncomplicated; B99.8 Other infectious disease; I10 Essential (primary) hypertension; E66.9 Obesity, unspecified; Z68.33 Body mass index [BMI] 33.0-33.9, adult; Z79.899 Other long term (current) drug therapy
CPT/HCPCS: 96372; 99283; J0696